=== PATIENT | female | born 1995 | race African-American/Black ===

== ENCOUNTER 2017-09-14 16:38 | Emergency (ER) | payer OTHER ==
[~2017-09-14] VITALS: Ht 162.6 cm; Wt 124.7 kg
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
[2017-09-14 17:35] VITALS: BP 155/92
[2017-09-14] MEDS ORDERED: IBUP-1060 PO (18:13)
[2017-09-14] MEDS ORDERED: CYCL5TAB PO (18:13)
[2017-09-14] MEDS ORDERED: IBUPROFEN 800 MG TABLET. PO ONE ×2 (18:17→18:30)
--- NOTE | 2017-09-15 07:24 | RAD ---
Lumbar spine x-rays Indication: Pain Technique: 3 views of the lumbar spine Comparison: None Findings: 5 lumbar vertebral bodies. No compression deformities. Mild intervertebral disc space narrowing at L5-S1 suggesting mild degenerative disc disease. SI joints within normal limits. Impression: Mild degenerative disc disease at L5-S1.
== END 2017-09-14 18:27 | disposition home or self-care (01) ==
LOC: ER 16:38
DX: S39.012A Strain of muscle, fascia and tendon of lower back, initial encounter (principal); V49.49XA Driver injured in collision with other motor vehicles in traffic accident, initial encounter; Y93.89 Activity, other specified; Y99.8 Other external cause status; Y92.488 Other paved roadways as the place of occurrence of the external cause
CPT/HCPCS: 72100; 81025; 99284

== ENCOUNTER 2017-09-26 15:45 | Emergency (ER) | payer MEDICAID, OTHER ==
[~2017-09-26] VITALS: Ht 162.6 cm; Wt 124.7 kg
[~2017-09-26 15:45] MED LIST: CYCL5TAB PO; IBUP-1060 PO
[2017-09-26] MEDS ORDERED: TOPIRAMATE 25 MG TABLET. PO STA (16:16)
[2017-09-26] MEDS ORDERED: levETIRAcetam 500 MG TABLET PO STA (16:16)
--- NOTE | 2017-09-26 16:26 | PHYS DOC ---
Past Medical History Past Medical History: Seizure, Other Additional Past Medical Histor: BENIGN BRAIN MASS, HYDROCEPHALUS Past Surgical History: Other Additional Past Surgical Histo: CHIARI MALFORMATIVE -2015 Alcohol Use: None Drug Use: None Adult General Chief Complaint Chief Complaint: HEADACHE HPI HPI Patient is a 22 year old female with history of hydrocephalus, Chiari malformation, who presents today complaining of a generalized 8 out of 10 headache with nausea but no vomiting that began 3 days ago. Patient is also complaining of feeling tired. Patient states she recently moved to [place] and has not seen her neurologist for quite some time. She is out of her Keppra and Topamax as well. Patient denies this being the worst headache in her life. She states the headache began gradually. Review of Systems Review of Systems Constitutional: Denies fever or chills [] Eyes: Denies change in visual acuity, redness, or eye pain [] HENT: Denies nasal congestion or sore throat [] Respiratory: Denies cough or shortness of breath [] Cardiovascular: No additional information not addressed in HPI [] GI: Reports nausea. Denies abdominal pain, vomiting, bloody stools or diarrhea [] : Denies dysuria or hematuria [] Musculoskeletal: Denies back pain or joint pain [] Integument: Denies rash or skin lesions [] Neurologic: Reports headache, denies focal weakness or sensory changes [] All other systems were reviewed and found to be within normal limits, except as documented in this note. Current Medications Current Medications Current Medications Medications (Trade) Dose Ordered Sig/Dorian Start Time Stop Time Status Last Admin Dose Admin Levetiracetam (Keppra) 500 mg 1X STAT 09/26/17 16:16 09/26/17 16:20 DC 09/26/17 16:53 500 MG Ondansetron HCl (Zofran) 4 mg 1X ONCE 09/26/17 16:30 09/26/17 16:31 DC 09/26/17 16:45 4 MG Sodium Chloride 1,000 ml @ 1,000 mls/hr 1X ONCE 09/26/17 16:30 09/26/17 17:29 DC 09/26/17 16:44 1,000 MLS/HR Topiramate (Topamax) 25 mg 1X STAT 09/26/17 16:16 09/26/17 16:20 DC 09/26/17 16:53 25 MG Allergies Allergies Allergies Coded Allergies Type Severity Reaction Last Updated Verified No Known Drug Allergies 09/14/17 No Physical Exam Physical Exam Constitutional: Well developed, well nourished, no acute distress, non-toxic appearance. [] HENT: Normocephalic, atraumatic, bilateral external ears normal, oropharynx moist, no oral exudates, nose normal. [] Eyes: PERRLA, EOMI, conjunctiva normal, no discharge. [] Neck: Normal range of motion, no tenderness, supple, no stridor. [] Cardiovascular:Heart rate regular rhythm, no murmur [] Lungs & Thorax: Bilateral breath sounds clear to auscultation [] Abdomen: Bowel sounds normal, soft, no tenderness, no masses, no pulsatile masses. [] Skin: Warm, dry, no erythema, no rash. [] Back: No tenderness, no CVA tenderness. [] Extremities: No tenderness, no cyanosis, no clubbing, ROM intact, no edema. [] Neurologic: Alert and oriented X 3, normal motor function, normal sensory function, no focal deficits noted. Cranial nerves II-XII intact Psychologic: Affect normal, judgement normal, mood normal. [] Current Patient Data Vital Signs Vital Signs Date Time Temp Pulse Resp B/P (MAP) Pulse Ox O2 Delivery O2 Flow Rate FiO2 09/26/17 16:45 81 16 98 09/26/17 15:49 98.2 155/96 (115) Room Air 98.2 Lab Values Laboratory Tests Test 09/26/17 16:23 09/26/17 16:30 POC Urine HCG, Qualitative Hcg negative (Negative) Urine Color Yellow Urine Clarity Clear Urine pH 6.5 Urine Specific [place] >=1.030 Urine Protein Negative mg/dL (NEG-TRACE) Urine Glucose (UA) Negative mg/dL (NEG) Urine Ketones (Stick) Negative mg/dL (NEG) Urine Blood Negative (NEG) Urine Nitrite Negative (NEG) Urine Bilirubin Negative (NEG) Urine Urobilinogen Dipstick 0.2 mg/dL (0.2 mg/dL) Urine Leukocyte Esterase Negative (NEG) Urine RBC 0 /HPF (0-2) Urine WBC Occ /HPF (0-4) Urine Squamous Epithelial Cells Occ /LPF Urine Bacteria Few /HPF (0-FEW) Urine Mucus Mod /LPF Sodium Level 139 mmol/L (136-145) Potassium Level 3.7 mmol/L (3.5-5.1) Chloride Level 103 mmol/L (98-107) Carbon Dioxide Level 25 mmol/L (21-32) Anion Gap 11 (6-14) Blood Urea Nitrogen 14 mg/dL (7-20) Creatinine 0.9 mg/dL (0.6-1.0) Estimated GFR (Cockcroft-Gault) 96.6 BUN/Creatinine Ratio 16 (6-20) Glucose Level 87 mg/dL (70-99) Calcium Level 9.2 mg/dL (8.5-10.1) Total Bilirubin 0.2 mg/dL (0.2-1.0) Aspartate Amino Transferase (AST) 19 U/L (15-37) Alanine Aminotransferase (ALT) 28 U/L (14-59) Alkaline Phosphatase 97 U/L (46-116) Total Protein 8.1 g/dL (6.4-8.2) Albumin 3.6 g/dL (3.4-5.0) Albumin/Globulin Ratio 0.8 (1.0-1.7) L Lipase 116 U/L (73-393) Laboratory Tests 09/26/17 16:30 EKG EKG [] Radiology/Procedures Radiology/Procedures []PROCEDURE: CT HEAD WO CONTRAST CT head without contrast 09/26/2017 Clinical indication: Chronic headache, history of hydrocephalus and Chiari malformation. COMPARISON: None. TECHNIQUE: Multiple CT images of the head were obtained without contrast according to standard protocol. There *One or more of the following individualized dose reduction techniques were utilized for this examination: 1. Automated exposure control. 2. Adjustment of the mA and/or kV according to patient size. 3. Use of iterative reconstruction technique. FINDINGS: There is asymmetry of the lateral ventricles. No acute intracranial hemorrhage or extra-axial fluid collection. No midline shift. The loaiza-white matter interfaces are grossly maintained. The basal cisterns are patent. There is hyperostosis frontalis internus which is a normal variant. Prior midline suboccipital craniectomy. IMPRESSION: 1. No acute intracranial hemorrhage. 2. Prior suboccipital craniectomy. 3. Asymmetry of the lateral ventricles, which can be a normal variant. Comparison with more remote imaging is recommended, if available. Electronically signed by: Luciano Daugherty MD (09/26/2017 5:12 PM) [facility] DICTATED and SIGNED BY: LUCIANO DAUGHERTY MD DATE: 09/26/17 2262 CC: KATHE ROMERO APRN; NO PCP; NON,STAFF ~ Course & Med Decision Making Course & Med Decision Making Pertinent Labs and Imaging studies reviewed. (See chart for details) This is a 24-year-old female patient with a history of Chiari malformation and hydrocephalus presenting to the ED today with a headache and nausea that began 3 days ago. CMP would not acute findings, urine negative for any acute findings. CBC not available. CT of the head was negative for any acute findings. Patient was provided a neurologist. She'll be discharged with a refill for her Topamax and Keppra. Dragon Disclaimer Dragon Disclaimer This electronic medical record was generated, in whole or in part, using a voice recognition dictation system. Departure Departure Impression: Primary Impression: Headache Disposition: 01 HOME, SELF-CARE Condition: STABLE Referrals: NO PCP (PCP) TRAVIS PLATT MD follow up in one week Patient Instructions: General Headache Without Cause Additional Instructions: You were seen for a headache. We did a CT scan of your head which is negative for any acute findings. We provided you an neurologist for follow-up. Call the office tomorrow and set up a follow-up appointment. You were discharged with Keppra and Topamax. Take them as prescribed. Scripts Topiramate (TOPAMAX) 25 Mg Tablet 1 TAB PO BID, #90 TAB 0 Refills Prov: KATHE ROMERO APRN 09/26/17 Levetiracetam (KEPPRA) 500 Mg Tablet 1 TAB PO BID, #90 TAB 0 Refills Prov: KATHE ROMERO APRN 09/26/17 Problem Qualifiers Primary Impression: Headache Headache type: unspecified Headache chronicity pattern: unspecified pattern Intractability: not intractable Qualified Codes: R51 - Headache DARRINJOSE AKATHE APRN Sep 26, 2017 16:26
[2017-09-26] MEDS ORDERED: IV NORMAL SALINE 1000ML BAG 1,000 ML IV ONE (16:30)
[2017-09-26] MEDS ORDERED: ONDANSETRON PF 4 MG/2 ML VIAL. IV ONE (16:30)
[2017-09-26 16:46] LABS: BILIRUBIN,URINE NEGATIVE (NEG); GLUCOSE,URINE NEGATIVE (NEG); NITRITE,URINE NEGATIVE (NEG); PH,URINE 6.5; PROTEIN,URINE NEGATIVE (NEG-TRACE); UROBILINOGEN,URINE 0.2 mg/dL (0.2 mg/dL)
[2017-09-26 16:54] LABS: CALCIUM 9.2 mg/dL (8.5-10.1); CREATININE 0.9 mg/dL (0.6-1.0); GFR 96.6; POTASSIUM 3.7 mmol/L (3.5-5.1)
[2017-09-26 16:57] LABS: BACTERIA,URINE FEW /HPF (0-FEW); RBC,URINE 0 /HPF (0-2); SQUAMOUS EPITHELIAL CELL,UR OCC /LPF; WBC,URINE OCC /HPF (0-4)
[2017-09-26 17:01] LABS: ALBUMIN 3.6 g/dL (3.4-5.0); ALBUMIN/GLOBULIN RATIO 0.8 (1.0-1.7); TOTAL BILIRUBIN 0.2 mg/dL (0.2-1.0); TOTAL PROTEIN 8.1 g/dL (6.4-8.2)
--- NOTE | 2017-09-26 17:15 | RAD ---
CT head without contrast 09/26/2017 Clinical indication: Chronic headache, history of hydrocephalus and Chiari malformation. COMPARISON: None. TECHNIQUE: Multiple CT images of the head were obtained without contrast according to standard protocol. There *One or more of the following individualized dose reduction techniques were utilized for this examination: 1. Automated exposure control. 2. Adjustment of the mA and/or kV according to patient size. 3. Use of iterative reconstruction technique. FINDINGS: There is asymmetry of the lateral ventricles. No acute intracranial hemorrhage or extra-axial fluid collection. No midline shift. The loaiza-white matter interfaces are grossly maintained. The basal cisterns are patent. There is hyperostosis frontalis internus which is a normal variant. Prior midline suboccipital craniectomy. IMPRESSION: 1. No acute intracranial hemorrhage. 2. Prior suboccipital craniectomy. 3. Asymmetry of the lateral ventricles, which can be a normal variant. Comparison with more remote imaging is recommended, if available. Electronically signed by: Hua Daugherty MD (09/26/2017 5:12 PM) [facility]
[2017-09-26 17:40] VITALS: BP 136/65
[2017-09-26] MEDS ORDERED: LEVE500T56 PO (17:55)
[2017-09-26] MEDS ORDERED: TOPI25TA52 PO (17:55)
[2017-09-26 18:04] LABS: BASO % 0 % (0-3); EOS % 0 % (0-3); HEMATOCRIT 35.3 % (36.0-47.0); HEMOGLOBIN 10.9 g/dL (12.0-15.5); LYMPH # 1.9 x10^3/uL (1.0-4.8); LYMPH % 17 % (24-48); MEAN CORPUSCULAR HEMOGLOBIN 25 pg (25-35); MEAN CORPUSCULAR HGB CONC 31 g/dL (31-37); MEAN CORPUSCULAR VOLUME 80 fL (79-100); MONO % 5 % (0-9); NEUT % 78 % (31-73); PLATELET COUNT 284 x10^3/uL (140-400); RED BLOOD COUNT 4.43 x10^6/uL (3.50-5.40); RED CELL DISTRIBUTION WIDTH 15.6 % (11.5-14.5); WHITE BLOOD COUNT 11.2 x10^3/uL (4.0-11.0)
== END 2017-09-26 18:02 | disposition home or self-care (01) ==
LOC: ER 15:45
DX: R51 Headache (principal); R11.0 Nausea
CPT/HCPCS: 36415; 70450; 80053; 81001; 81025; 83690; 85025; 96361; 96374; 99285; J2405; J7030

== ENCOUNTER 2018-04-20 22:41 | Emergency (ER) | payer MEDICAID ==
[2018-04-21] MEDS: ONDANSETRON PF 4 MG/2 ML VIAL. IV (00:20)
[2018-04-21] MEDS: IV NORMAL SALINE 1000ML BAG 1,000 ML IV (00:20)
[2018-04-21] MEDS: TOPIRAMATE 25 MG TABLET. PO (00:20)
[2018-04-21 00:21] LABS: ADD MAN DIFF? NO
[2018-04-21 00:24] LABS: BASO % 0 % (0-3); EOS # 0.1 x10^3/uL (0.0-0.7); EOS % 1 % (0-3); HEMATOCRIT 35.2 % (36.0-47.0); HEMOGLOBIN 11.3 g/dL (12.0-15.5); LYMPH # 2.4 x10^3/uL (1.0-4.8); LYMPH % 19 % (24-48); MEAN CORPUSCULAR HEMOGLOBIN 25 pg (25-35); MEAN CORPUSCULAR HGB CONC 32 g/dL (31-37); MEAN CORPUSCULAR VOLUME 78 fL (79-100); MONO # 0.5 x10^3/uL (0.0-1.1); MONO % 4 % (0-9); NEUT # 9.4 x10^3uL (1.8-7.7); NEUT % 76 % (31-73); PLATELET COUNT 304 x10^3/uL (140-400); RED BLOOD COUNT 4.49 x10^6/uL (3.50-5.40); RED CELL DISTRIBUTION WIDTH 15.9 % (11.5-14.5); WHITE BLOOD COUNT 12.4 x10^3/uL (4.0-11.0)
[2018-04-21 00:31] LABS: ANION GAP 11 (6-14); BLOOD UREA NITROGEN 13 mg/dL (7-20); BUN/CREATININE RATIO 13 (6-20); CALCIUM 8.9 mg/dL (8.5-10.1); CARBON DIOXIDE 23 mmol/L (21-32); CHLORIDE 107 mmol/L (98-107); GFR 84.7; GLUCOSE 85 mg/dL (70-99); POTASSIUM 4.3 mmol/L (3.5-5.1); SODIUM 141 mmol/L (136-145)
[2018-04-21 00:37] LABS: ALBUMIN 3.3 g/dL (3.4-5.0); ALBUMIN/GLOBULIN RATIO 0.8 (1.0-1.7); ALK PHOS 95 U/L (46-116); ALT (SGPT) 24 U/L (14-59); AST (SGOT) 24 U/L (15-37); LIPASE 136 U/L (73-393); TOTAL BILIRUBIN 0.3 mg/dL (0.2-1.0); TOTAL PROTEIN 7.6 g/dL (6.4-8.2)
[2018-04-21 00:47] LABS: URINE HCG POC HCG NEGATIVE (Negative)
[2018-04-21 00:48] LABS: BILIRUBIN,URINE NEGATIVE (NEG); CLARITY,URINE CLOUDY; COLOR,URINE YELLOW; GLUCOSE,URINE NEGATIVE (NEG); NITRITE,URINE NEGATIVE (NEG); PROTEIN,URINE NEGATIVE (NEG-TRACE); UROBILINOGEN,URINE 0.2 mg/dL (0.2 mg/dL)
[2018-04-21 01:02] LABS: BACTERIA,URINE MODERATE /HPF (0-FEW); SQUAMOUS EPITHELIAL CELL,UR FEW /LPF
== END 2018-04-21 01:19 | disposition home or self-care (01) ==
LOC: ER 04-21 01:19
DX: R56.9 Unspecified convulsions (principal); K21.9 Gastro-esophageal reflux disease without esophagitis; F12.10 Cannabis abuse, uncomplicated; Z79.899 Other long term (current) drug therapy
CPT/HCPCS: 36415; 80053; 81001; 81025; 83605; 83690; 85025; 87086; 93005; 96361; 96374; 96375; 99285-25; J2060; J2405; J7030

== ENCOUNTER 2018-10-23 22:32 | Emergency (ER) | payer SELFPAY ==
[~2018-10-23] VITALS: Ht 162.6 cm; Wt 127.0 kg
[~2018-10-23 22:32] MED LIST changes: +LEVE500T56 PO; +ONDA4TAB10 SL; +TOPI25TA52 PO
[2018-10-23 22:34] VITALS: BP 151/78
[2018-10-23] MEDS ORDERED: NAPROXEN 500 MG TABLET PO ONE (23:00)
[2018-10-23] MEDS ORDERED: CYCL10TA2 PO (23:17)
[2018-10-23] MEDS ORDERED: TOPI50TA8 PO (23:17)
[2018-10-23] MEDS ORDERED: DICL50TA4 PO (23:17)
[2018-10-23] MEDS ORDERED: ACET-704 PO (23:17)
--- NOTE | 2018-10-23 23:17 | PHYS DOC ---
Past Medical History Past Medical History: Seizure, Other Additional Past Medical Histor: BENIGN BRAIN MASS, HYDROCEPHALUS Past Surgical History: Other Additional Past Surgical Histo: CHIARI MALFORMATIVE -2015 Alcohol Use: None Drug Use: None Adult General Chief Complaint Chief Complaint: BACK PAIN - NO INJURY HPI HPI Patient is a 23 year old female with history of seizures who presents today complaining of exacerbation of chronic low back pain. Patient denies any known injury. Patient rates the pain as moderate described this as sharp and radiating to the left lower extremity. Patient states the pain has been going on for a couple days. Patient denies any known injury. Patient denies any numbness or tingling to bilateral lower extremities. Denies any loss of bowel bladder function. She is also requesting a refill of Topiramate for her seizures. She states she is in the process of switching her insurance from [place] to [place]. Review of Systems Review of Systems Constitutional: Denies fever or chills [] GI: Denies abdominal pain, nausea, vomiting, bloody stools or diarrhea [] : Denies dysuria or hematuria [] Musculoskeletal: Reports exacerbation of chronic low back pain, denies joint pain [] Integument: Denies rash or skin lesions [] Neurologic: Request for seizure medication refill. Denies headache, focal weakness or sensory changes [] All other systems were reviewed and found to be within normal limits, except as documented in this note. Current Medications Current Medications Current Medications Medications (Trade) Dose Ordered Sig/Dorian Start Time Stop Time Status Last Admin Dose Admin Acetaminophen/ Hydrocodone Bitart (Lortab 5/325) 2 tab 1X ONCE 10/23/18 23:30 10/23/18 23:31 10/23/18 23:04 2 TAB Cyclobenzaprine HCl (Flexeril) 10 mg 1X ONCE 10/23/18 23:30 10/23/18 23:31 10/23/18 23:03 10 MG Naproxen (Naprosyn) 500 mg 1X ONCE 10/23/18 23:00 10/23/18 23:01 DC 10/23/18 23:03 500 MG Allergies Allergies Allergies Coded Allergies Type Severity Reaction Last Updated Verified No Known Drug Allergies 09/14/17 No Physical Exam Physical Exam Constitutional: Well developed, well nourished, no acute distress, non-toxic appearance. [] Abdomen: Bowel sounds normal, soft, no tenderness, no masses, no pulsatile masses. [] Skin: Warm, dry, no erythema, no rash. [] Back: Overweight patient. Diffuse paraspinal muscle tenderness the left lumbar spine worse on the left SI joint, no midline lumbar spine tenderness, no CVA tenderness. [] Extremities: No tenderness, no cyanosis, no clubbing, ROM intact, no edema. [] Neurologic: Alert and oriented X 3, normal motor function, normal sensory function, no focal deficits noted. [] Psychologic: Affect normal, judgement normal, mood normal. [] Current Patient Data Vital Signs Vital Signs Date Time Temp Pulse Resp B/P (MAP) Pulse Ox O2 Delivery O2 Flow Rate FiO2 10/23/18 23:04 18 98 Room Air EKG EKG [] Radiology/Procedures Radiology/Procedures [] Course & Med Decision Making Course & Med Decision Making Pertinent Labs and Imaging studies reviewed. (See chart for details) This is a 23-year-old female patient presenting to the ED today with low back pain, no known injury. History of the same. No cauda equina syndrome symptoms on exam. Patient will be provided pain management for outpatient follow-up. Also requesting refill for her seizure medicine. Prescription for Topiramate given. Provided neurology for follow-up. Dragon Disclaimer Dragon Disclaimer This electronic medical record was generated, in whole or in part, using a voice recognition dictation system. Departure Departure Impression: Primary Impression: Back pain Additional Impression: Medication refill Disposition: HOME, SELF-CARE Condition: STABLE Referrals: NO PCP (PCP) follow up in one week ANTHONY ARCHER MD follow up in one week ELISE GALVEZ MD Patient Instructions: Back Pain, Adult, [id number] Additional Instructions: You were evaluated in the emergency room for low back pain. Please take the prescribed medications as ordered. Follow-up with your own doctor or the provided specialist in one week. Scripts Diclofenac Sodium (DICLOFENAC SODIUM) 50 Mg Tablet. 1 TAB PO BID, #60 TAB 2 Refills Prov: KATHE ROMERO [employer] 10/23/18 Topiramate (TOPIRAMATE) 50 Mg Tablet 1 TAB PO BID, #90 TAB 3 Refills Prov: YOLYAKATHE [employer] 10/23/18 Acetaminophen With Codeine (TYLENOL WITH CODEINE #3 TABLET) 1 Each Tablet 1 TAB PO PRN Q6HRS PRN for PAIN, #30 TAB Prov: KATHE ROMERO [employer] 10/23/18 Cyclobenzaprine Hcl (CYCLOBENZAPRINE HCL) 10 Mg Tablet 1 TAB PO TID, #30 TAB Prov: KATHE ROMERO [employer] 10/23/18 Problem Qualifiers Primary Impression: Back pain Back pain location: low back pain Chronicity: chronic Back pain laterality : left Sciatica presence: with sciatica Sciatica laterality: sciatica of left side Qualified Codes: M54.42 - Lumbago with sciatica, left side; G89.29 - Other chronic pain KATHE ROMERO ADY Oct 23, 2018 23:17
[2018-10-23] MEDS ORDERED: HYDROcodone/APAP 5/325MG 1 TAB TABLET PO ONE (23:30)
[2018-10-23] MEDS ORDERED: CYCLOBENZAPRINE 10 MG TABLET. PO ONE (23:30)
== END 2018-10-23 23:18 | disposition home or self-care (01) ==
LOC: ER 22:32
DX: G89.29 Other chronic pain (principal); M54.42 Lumbago with sciatica, left side; Z76.0 Encounter for issue of repeat prescription; E66.3 Overweight; Z68.42 Body mass index [BMI] 45.0-49.9, adult
CPT/HCPCS: 99284

== ENCOUNTER 2018-11-19 16:25 | Emergency (ER) | payer OTHER ==
[~2018-11-19] VITALS: Ht 162.6 cm; Wt 117.9 kg
[~2018-11-19 16:25] MED LIST changes: +ACET-704 PO; +CYCL10TA2 PO; +DICL50TA4 PO; +TOPI50TA8 PO
[2018-11-19 16:35] VITALS: BP 150/74
[2018-11-19] MEDS ORDERED: BENZ100C PO (16:50)
--- NOTE | 2018-11-19 16:51 | PHYS DOC ---
Past Medical History Past Medical History: Asthma, Seizure, Other Additional Past Medical Histor: BENIGN BRAIN MASS, HYDROCEPHALUS, SCIATICA (EUGENIO DOUGLAS THREAD WINDER) Past Surgical History: Other Additional Past Surgical Histo: CHIARI MALFORMATIVE -2015, "BACK SURGERY" (EUGENIO DOUGLAS THREAD WINDER) Alcohol Use: Occasionally Drug Use: Marijuana (EUGENIO DOUGLAS THREAD WINDER) Adult General Chief Complaint Chief Complaint: COUGH HPI HPI Patient is a 23 year old female who presents with cough times one month. States that whenever she coughs hard or strains the back of her head will hurt and sometimes she will feel like she is weak or may faint. Patient has not fainted. She denies LOC, dizziness, chest pain, shortness of air. Patient states occasionally she was nauseated. (EUGENIO DOUGLAS THREAD WINDER) Review of Systems Review of Systems Constitutional: Denies fever or chills [] Eyes: Denies change in visual acuity, redness, or eye pain [] HENT: Denies nasal congestion or sore throat [] Respiratory: cough or denies shortness of breath [] Cardiovascular: No additional information not addressed in HPI [] GI: Denies abdominal pain, nausea, vomiting, bloody stools or diarrhea [] : Denies dysuria or hematuria [] Musculoskeletal: Denies back pain or joint pain [] Integument: Denies rash or skin lesions [] Neurologic: headache, denies focal weakness or sensory changes [] All other systems were reviewed and found to be within normal limits, except as documented in this note. (EUGENIO DOUGLAS THREAD WINDER) Current Medications Current Medications Current Medications Medications (Trade) Dose Ordered Sig/Dorian Start Time Stop Time Status Last Admin Dose Admin Dexamethasone (Decadron) 8 mg 1X ONCE 11/19/18 17:00 11/19/18 17:01 DC 11/19/18 17:06 8 MG (ROMAINE JANSEN DO) Allergies Allergies Allergies Coded Allergies Type Severity Reaction Last Updated Verified No Known Drug Allergies 09/14/17 No (ROMAINE JANSEN DO) Physical Exam Physical Exam Constitutional: Well developed, well nourished, no acute distress, non-toxic appearance. [] HENT: Normocephalic, atraumatic, bilateral external ears normal, oropharynx moist, no oral exudates, nose normal. [] Eyes: PERRLA, EOMI, conjunctiva normal, no discharge. [] Neck: Normal range of motion, no tenderness, supple, no stridor. [] Cardiovascular:Heart rate regular rhythm, no murmur [] Lungs & Thorax: Bilateral breath sounds clear to auscultation [] Abdomen: Bowel sounds normal, soft, no tenderness, no masses, no pulsatile masses. [] Skin: Warm, dry, no erythema, no rash. [] Back: No tenderness, no CVA tenderness. [] Extremities: No tenderness, no cyanosis, no clubbing, ROM intact, no edema. [] Neurologic: Alert and oriented X 3, normal motor function, normal sensory function, no focal deficits noted. [] Psychologic: Affect normal, judgement normal, mood normal. [] (EUGENIO DOUGLAS APRN) Current Patient Data Vital Signs Vital Signs Date Time Temp Pulse Resp B/P (MAP) Pulse Ox O2 Delivery O2 Flow Rate FiO2 11/19/18 16:35 99.0 96 16 150/74 (99) 100 Room Air 99.0 (ROMAINE JANSEN DO) EKG EKG [] (EUGENIO DOUGLAS APRN) Radiology/Procedures Radiology/Procedures [] (EUGENIO DOUGLAS APRN) Course & Med Decision Making Course & Med Decision Making Patient is a 23 year old female who presents with cough times one month. States that whenever she coughs hard or strains the back of her head will hurt and sometimes she will feel like she is weak or may faint. Patient has not fainted. She denies LOC, numbness or tingling, dizziness, chest pain, shortness of air, abdominal pain, dysuria, body aches. Patient states occasionally she was nauseated. Lungs are clear to auscultation in all lobes. Neurologically intact. Alert and oriented. Walks with steady gait. Bilateral tympanic membranes are boggy in color. Her temp is 99.0. Rest of vital signs are within normal limits. Patient has no focal weaknesses. Patient is getting a dose of dexamethasone in the ED. Given a prescription for Tessalon Perles. Patient also needs resources to establish a primary care provider. Patient to continue taking Tylenol or ibuprofen for any Pain she is having. Patient is stable and in no distress. (EUGENIO DOUGLAS APRN) Dragon Disclaimer Dragon Disclaimer This electronic medical record was generated, in whole or in part, using a voice recognition dictation system. (EUGENIO DOUGLAS APRN) Departure Departure Impression: Primary Impression: Cough Disposition: HOME, SELF-CARE Condition: STABLE Referrals: NO PCP (PCP) Patient Instructions: Cough, Adult Additional Instructions: Follow up with primary care as soon as possible. Take medications as Prescribed. Scripts Benzonatate (TESSALON PERLE) 100 Mg Capsule 1 CAP PO TID for 7 Days, #21 CAP Prov: EUGENIO DOUGLAS APRN 11/19/18 Attending Signature Attending Signature I have reviewed the PA/EVICTION SPECIALIST's note and plan of care. I was available for consultation as needed during the patient's visit in the emergency department. I agree with the clinical impression, plan, and disposition. (ROMAINE JANSEN DO) EUGENIO DOUGLAS APRN Nov 19, 2018 16:51 ROMAINE JANSEN DO Nov 19, 2018 17:51
[2018-11-19] MEDS: DEXAMETHASONE 4 MG TABLET PO ONE (17:06)
== END 2018-11-19 17:05 | disposition home or self-care (01) ==
LOC: ER 16:25
DX: R05 Cough (principal); R51 Headache; J45.909 Unspecified asthma, uncomplicated
CPT/HCPCS: 99283; J8540

== ENCOUNTER 2019-01-16 20:16 | Emergency (ER) | payer OTHER ==
[~2019-01-16] VITALS: Ht 162.6 cm; Wt 124.7 kg
[~2019-01-16 20:16] MED LIST changes: +BENZ100C PO
[2019-01-16 20:36] VITALS: BP 138/91
[2019-01-16] MEDS ORDERED: AMOX500C PO (22:07)
--- NOTE | 2019-01-16 22:08 | PHYS DOC ---
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 Patient denied any fever, no headache, no neck pain. NO ABDOMINAL PAIN, NO SHORTNESS OF AIR, NO CHEST PAIN. Review of Systems Review of Systems Constitutional: Denies fever or chills [] Eyes: Denies change in visual acuity, redness, or eye pain [] HENT: Positive for nasal congestion and sore throat [] Respiratory: Denies cough or shortness of breath [] Cardiovascular: No additional information not addressed in HPI [] GI: Denies abdominal pain, nausea, vomiting, bloody stools or diarrhea [] : Denies dysuria or hematuria [] Musculoskeletal: Denies back pain or joint pain [] Integument: Denies rash or skin lesions [] Neurologic: Denies headache, focal weakness or sensory changes [] Endocrine: Denies polyuria or polydipsia [] All other systems were reviewed and found to be within normal limits, except as documented in this note. Allergies Allergies Allergies Coded Allergies Type Severity Reaction Last Updated Verified No Known Drug Allergies 09/14/17 No Physical Exam Physical Exam Constitutional: Well developed, well nourished, no acute distress, non-toxic appearance. [] HENT: Normocephalic, atraumatic, bilateral external ears normal, oropharynx is erythematous, no oral exudates, nose normal, UVULA IS MIDLINE. Eyes: PERRLA, EOMI, conjunctiva normal, no discharge. [] Neck: Normal range of motion, no tenderness, supple, no stridor. [] Cardiovascular:Heart rate regular rhythm, no murmur [] Lungs & Thorax: Bilateral breath sounds clear to auscultation [] Abdomen: Bowel sounds normal, soft, no tenderness, no masses, no pulsatile masses. [] Skin: Warm, dry, no erythema, no rash. [] Back: No tenderness, no CVA tenderness. [] Extremities: No tenderness, no cyanosis, no clubbing, ROM intact, no edema. [] Neurologic: Alert and oriented X 3, normal motor function, normal sensory function, no focal deficits noted. [] Psychologic: Affect normal, judgement normal, mood normal. [] Current Patient Data Vital Signs Vital Signs Date Time Temp Pulse Resp B/P (MAP) Pulse Ox O2 Delivery O2 Flow Rate FiO2 01/16/19 20:36 97.5 79 16 138/91 (107) 100 Room Air 97.5 EKG EKG [] Radiology/Procedures Radiology/Procedures [] Course & Med Decision Making Course & Med Decision Making Pertinent Labs and Imaging studies reviewed. (See chart for details) [] Dragon Disclaimer Dragon Disclaimer This electronic medical record was generated, in whole or in part, using a voice recognition dictation system. Departure Departure Impression: Primary Impression: Pharyngitis Disposition: 01 HOME, SELF-CARE Condition: STABLE Referrals: NON,STAFF (PCP) follow up with your pcp next week Patient Instructions: Viral and Bacterial Pharyngitis Scripts Amoxicillin (AMOXICILLIN) 500 Mg Capsule 500 MG PO TID for 10 Days, #30 CAP 0 Refills Prov: LOUISE GUIDRY DO 01/16/19 LOUISE GUIDRY DO Jan 16, 2019 22:08
== END 2019-01-16 22:22 | disposition home or self-care (01) ==
LOC: ER 20:16
DX: J02.9 Acute pharyngitis, unspecified (principal); R05 Cough; J45.909 Unspecified asthma, uncomplicated
CPT/HCPCS: 87070; 87880; 99283

== ENCOUNTER 2019-01-23 11:45 | Emergency (ER) | payer OTHER ==
[~2019-01-23] VITALS: Ht 162.6 cm; Wt 122.5 kg
[~2019-01-23 11:45] MED LIST changes: +AMOX500C PO
[2019-01-23 12:28] VITALS: BP 155/78
[2019-01-23] MEDS ORDERED: BENZ100C PO (12:54)
[2019-01-23] MEDS ORDERED: PRED50TA PO (12:54)
[2019-01-23] MEDS ORDERED: AZIT250T PO (12:54)
[2019-01-23] MEDS ORDERED: VENTOLIN HFA18 GM INH (12:54)
--- NOTE | 2019-01-23 12:54 | PHYS DOC ---
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 Patient states she was seen in the ED on my 2018, got diagnosed with pharyngitis and discharged on amoxicillin. She states the amoxicillin made her itch after a couple days of taking it, she states she stopped taking the medication. She would like us to switch her to a different antibiotics. Patient denies any fever. Denies any nasal congestion. She states she still has a cough. (KATHE ROMERO APRN) Review of Systems Review of Systems Constitutional: Denies fever or chills [] Eyes: Denies change in visual acuity, redness, or eye pain [] HENT: Reports sore throat. Denies nasal congestion Respiratory: Reports cough, denies shortness of breath [] Cardiovascular: No additional information not addressed in HPI [] GI: Denies abdominal pain, nausea, vomiting, bloody stools or diarrhea [] : Denies dysuria or hematuria [] Musculoskeletal: Denies back pain or joint pain [] Integument: Denies rash or skin lesions [] Neurologic: Denies headache, focal weakness or sensory changes [] All other systems were reviewed and found to be within normal limits, except as documented in this note. (KATHE ROMERO APRN) Current Medications Current Medications Current Medications Medications (Trade) Dose Ordered Sig/Dorian Start Time Stop Time Status Last Admin Dose Admin Albuterol/ Ipratropium (Duoneb) 3 ml 1X ONCE 01/23/19 13:00 01/23/19 13:00 DC 01/23/19 12:39 3 ML Benzonatate (Tessalon Perle) 100 mg 1X ONCE 01/23/19 13:00 01/23/19 13:00 DC 01/23/19 12:49 100 MG Prednisone (Prednisone) 50 mg 1X ONCE 01/23/19 13:00 01/23/19 13:00 DC 01/23/19 12:50 50 MG (SHARAD SIEGEL MD) Allergies Allergies Allergies Coded Allergies Type Severity Reaction Last Updated Verified No Known Drug Allergies 09/14/17 No (SHARAD SIEGEL MD) Physical Exam Physical Exam Constitutional: Well developed, well nourished, no acute distress, non-toxic appearance. [] HENT: Normocephalic, atraumatic, bilateral external ears normal, oropharynx moist, no oral exudates, nose normal. [] +2 tonsils with trace erythema, no exudate. +2 anterior cervical adenopathy Eyes: PERRLA, EOMI, conjunctiva normal, no discharge. [] Neck: Normal range of motion, no tenderness, supple, no stridor. [] Cardiovascular:Heart rate regular rhythm, no murmur [] Lungs & Thorax: Bilateral breath sounds clear to auscultation [] Abdomen: Bowel sounds normal, soft, no tenderness, no masses, no pulsatile masses. [] Skin: Warm, dry, no erythema, no rash. [] Back: No tenderness, no CVA tenderness. [] Extremities: No tenderness, no cyanosis, no clubbing, ROM intact, no edema. [] Neurologic: Alert and oriented X 3, normal motor function, normal sensory function, no focal deficits noted. [] Psychologic: Affect normal, judgement normal, mood normal. [] (KATHE ROMERO APRN) Current Patient Data Vital Signs Vital Signs Date Time Temp Pulse Resp B/P (MAP) Pulse Ox O2 Delivery O2 Flow Rate FiO2 01/23/19 12:39 98 Room Air 01/23/19 12:28 98.6 85 18 155/78 (103) 98.6 (SHARAD SIEGEL MD) EKG EKG [] (KATHE ROMERO APRN) Radiology/Procedures Radiology/Procedures [] (KATHE ROMERO APRN) Course & Med Decision Making Course & Med Decision Making Pertinent Labs and Imaging studies reviewed. (See chart for details) This is a 23-year-old. Presenting to the ED today with sore throat and a cough that began a week ago, was started on amoxicillin, she states it made her itch. I switched her to azithromycin. She was actively coughing on arrival to the ED. We've given a DuoNeb treatment and prednisone. Her coughing has subsided. She was discharged to home with albuterol inhaler and Tessalon Perles. Given prednisone. Instructed follow up with her own PCP. (KATHE ROMERO APRN) Course & Med Decision Making Staff Physician Addendum: I was working in the ER during the course of this patient's visit. I was available for consultation as needed, but I was not directly involved in the care of this patient. (SHARAD SIEGEL MD) Dragon Disclaimer Dragon Disclaimer This electronic medical record was generated, in whole or in part, using a voice recognition dictation system. (KATHE ROMERO APRN) Departure Departure Impression: Primary Impression: Cough Additional Impression: Acute pharyngitis Disposition: HOME, SELF-CARE Condition: STABLE Referrals: UNKNOWN PCP NAME (PCP) follow up with your doctor in 1 week Patient Instructions: Cough, Adult, Viral and Bacterial Pharyngitis Additional Instructions: You were evaluated in the emergency room for cough and pharyngitis. We put you on medications, take them as prescribed. Follow-up with your doctor in 1-2 weeks. You can also use saltwater gargles for throat pain too Scripts Azithromycin (ZITHROMAX) 250 Mg Tablet 1 PKG PO UD, #1 PKG Prov: KATHE ROMERO APRN 01/23/19 Benzonatate (TESSALON PERLE) 100 Mg Capsule 1 CAP PO TID, #30 CAP Prov: KATHE ROMERO APRN 01/23/19 Albuterol Sulfate (VENTOLIN HFA INHALER) 18 Gm Hfa.aer.ad 2 PUFF INH Q4HRS for FOR ASTHMA, #1 INHALER 0 Refills Prov: KATHE ROMERO APRN 01/23/19 Prednisone (PREDNISONE) 50 Mg Tablet 1 TAB PO DAILY, #5 TAB Prov: KATHE ROMERO APRN 01/23/19 Problem Qualifiers Additional Impression: Acute pharyngitis Pharyngitis/tonsillitis etiology: unspecified etiology Qualified Codes: J02.9 - Acute pharyngitis, unspecified KATHE ROMERO APRN Jan 23, 2019 12:54 SHARAD SIEGEL MD Jan 30, 2019 20:15
[2019-01-23] MEDS ORDERED: predniSONE 10 MG TABLET PO ONE (13:00)
[2019-01-23] MEDS ORDERED: IPRATRPIUM/ALBUTEROL 0.5/2.5MG 3 ML NEBU. NEB ONE (13:00)
[2019-01-23] MEDS ORDERED: BENZONATATE 100 MG CAPSULE. PO ONE (13:00)
== END 2019-01-23 12:54 | disposition home or self-care (01) ==
LOC: ER 11:45
DX: J02.9 Acute pharyngitis, unspecified (principal); R05 Cough; J45.909 Unspecified asthma, uncomplicated
CPT/HCPCS: 94640; 99283; J7512; J7620

== ENCOUNTER 2019-01-31 19:22 | Emergency (ER) | payer OTHER ==
[~2019-01-31] VITALS: Ht 162.6 cm; Wt 122.5 kg
[~2019-01-31 19:22] MED LIST changes: +AZIT250T PO; +PRED50TA PO; +VENTOLIN HFA18 GM INH
[2019-01-31 20:22] LABS: BASO % 0 % (0-3); EOS % 0 % (0-3); HEMATOCRIT 36.4 % (36.0-47.0); HEMOGLOBIN 11.5 g/dL (12.0-15.5); LYMPH # 1.5 x10^3/uL (1.0-4.8); LYMPH % 11 % (24-48); MEAN CORPUSCULAR HEMOGLOBIN 25 pg (25-35); MEAN CORPUSCULAR HGB CONC 32 g/dL (31-37); MEAN CORPUSCULAR VOLUME 79 fL (79-100); MONO # 0.4 x10^3/uL (0.0-1.1); MONO % 3 % (0-9); NEUT # 11.6 x10^3uL (1.8-7.7); NEUT % 85 % (31-73); PLATELET COUNT 342 x10^3/uL (140-400); RED BLOOD COUNT 4.58 x10^6/uL (3.50-5.40); RED CELL DISTRIBUTION WIDTH 14.2 % (11.5-14.5); WHITE BLOOD COUNT 13.5 x10^3/uL (4.0-11.0)
[2019-01-31 20:28] LABS: CALCIUM 9.1 mg/dL (8.5-10.1); CREATININE 0.9 mg/dL (0.6-1.0); GFR 95.6; POTASSIUM 3.4 mmol/L (3.5-5.1)
[2019-01-31 20:33] LABS: ALBUMIN 3.6 g/dL (3.4-5.0); ALBUMIN/GLOBULIN RATIO 0.8 (1.0-1.7); TOTAL BILIRUBIN 0.2 mg/dL (0.2-1.0); TOTAL PROTEIN 8.1 g/dL (6.4-8.2)
[2019-01-31 21:15] LABS: % BANDS 9 % (0-9); % LYMPHS 15 % (24-48); % MONOS 5 % (0-10); % SEGS 71 % (35-66); PLT ESTIMATE ADEQUATE (ADEQUATE)
--- NOTE | 2019-01-31 22:15 | PHYS DOC ---
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 Patient reports feeling anxious, tearful. She states she is under increased stress due to her mother facing a lengthy retirement sentence. Patient's mother findings of her retirement sentence tomorrow. Patient reports occasional chest pain, palpitations, shortness of breath. She is compliant with Topamax. Patient is not from the area does not have a local primary care physician. She does take Topamax. Denies history of epilepsy. [] Review of Systems Review of Systems ROS as per HPI All other systems were reviewed and found to be within normal limits, except as documented in this note. Current Medications Current Medications Current Medications Medications (Trade) Dose Ordered Sig/Dorian Start Time Stop Time Status Last Admin Dose Admin Lorazepam (Ativan) 1 mg 1X ONCE 01/31/19 20:45 01/31/19 20:48 DC 01/31/19 21:31 1 MG Allergies Allergies Allergies Coded Allergies Type Severity Reaction Last Updated Verified amoxicillin Allergy Intermediate 01/31/19 Yes Physical Exam Physical Exam Constitutional: Well developed, well nourished, no acute distress, non-toxic appearance. [] HENT: Normocephalic, atraumatic, bilateral external ears normal, oropharynx moist, no oral exudates, nose normal. [] Eyes: PERRLA, EOMI, conjunctiva normal, no discharge. [] Neck: Normal range of motion, no tenderness, supple, no stridor. [] Cardiovascular:Heart rate regular rhythm, no murmur [] Lungs & Thorax: Bilateral breath sounds clear to auscultation [] Abdomen: Bowel sounds normal, soft, no tenderness, no masses, no pulsatile masses. [] Skin: Warm, dry, no erythema, no rash. [] Back: No tenderness, no CVA tenderness. [] Extremities: No tenderness, no cyanosis, no clubbing, ROM intact, no edema. [] Neurologic: Alert and oriented X 3, normal motor function, normal sensory function, no focal deficits noted. [] Psychologic: Affect anxious, tearful. [] Current Patient Data Vital Signs Vital Signs Date Time Temp Pulse Resp B/P (MAP) Pulse Ox O2 Delivery O2 Flow Rate FiO2 01/31/19 19:37 98.0 85 16 139/79 (99) Room Air 98.0 Lab Values Laboratory Tests Test 01/31/19 19:50 White Blood Count 13.5 x10^3/uL (4.0-11.0) H Red Blood Count 4.58 x10^6/uL (3.50-5.40) Hemoglobin 11.5 g/dL (12.0-15.5) L Hematocrit 36.4 % (36.0-47.0) Mean Corpuscular Volume 79 fL (79-100) Mean Corpuscular Hemoglobin 25 pg (25-35) Mean Corpuscular Hemoglobin Concent 32 g/dL (31-37) Red Cell Distribution Width 14.2 % (11.5-14.5) Platelet Count 342 x10^3/uL (140-400) Neutrophils (%) (Auto) 85 % (31-73) H Lymphocytes (%) (Auto) 11 % (24-48) L Monocytes (%) (Auto) 3 % (0-9) Eosinophils (%) (Auto) 0 % (0-3) Basophils (%) (Auto) 0 % (0-3) Neutrophils # (Auto) 11.6 x10^3uL (1.8-7.7) H Lymphocytes # (Auto) 1.5 x10^3/uL (1.0-4.8) Monocytes # (Auto) 0.4 x10^3/uL (0.0-1.1) Eosinophils # (Auto) 0.0 x10^3/uL (0.0-0.7) Basophils # (Auto) 0.0 x10^3/uL (0.0-0.2) Segmented Neutrophils % 71 % (35-66) H Band Neutrophils % 9 % (0-9) Lymphocytes % 15 % (24-48) L Monocytes % 5 % (0-10) Platelet Estimate Adequate (ADEQUATE) Sodium Level 137 mmol/L (136-145) Potassium Level 3.4 mmol/L (3.5-5.1) L Chloride Level 102 mmol/L (98-107) Carbon Dioxide Level 23 mmol/L (21-32) Anion Gap 12 (6-14) Blood Urea Nitrogen 11 mg/dL (7-20) Creatinine 0.9 mg/dL (0.6-1.0) Estimated GFR (Cockcroft-Gault) 95.6 BUN/Creatinine Ratio 12 (6-20) Glucose Level 100 mg/dL (70-99) H Calcium Level 9.1 mg/dL (8.5-10.1) Total Bilirubin 0.2 mg/dL (0.2-1.0) Aspartate Amino Transferase (AST) 15 U/L (15-37) Alanine Aminotransferase (ALT) 24 U/L (14-59) Alkaline Phosphatase 92 U/L (46-116) Total Protein 8.1 g/dL (6.4-8.2) Albumin 3.6 g/dL (3.4-5.0) Albumin/Globulin Ratio 0.8 (1.0-1.7) L Laboratory Tests 01/31/19 19:50 Laboratory Tests 01/31/19 19:50 EKG EKG [EKG: Sinus rhythm, no acute ST-T wave changes.] Course & Med Decision Making Course & Med Decision Making Pertinent Labs and Imaging studies reviewed. (See chart for details) [Patient under considerable stress likely contributing to anxiety attack, possible pseudoseizure. Ativan given. Workup otherwise unremarkable. Will prescribe Ativan until patient can follow-up or establish with local primary care for] Dragon Disclaimer Dragon Disclaimer This electronic medical record was generated, in whole or in part, using a voice recognition dictation system. Departure Departure Impression: Primary Impression: Pseudoseizure Disposition: 01 HOME, SELF-CARE Condition: IMPROVED Referrals: UNKNOWN PCP NAME (PCP) Patient Instructions: Anxiety and Panic Attacks Additional Instructions: Please take newly prescribed medication as directed and follow-up with primary care physician for further evaluation and management of pseudoseizures. Scripts Lorazepam (ATIVAN) 1 Mg Tablet 1 MG PO BID for 5 Days, #10 TAB Prov: ANÍBAL DOTSON DO 01/31/19 ANÍBAL DOTSON DO Jan 31, 2019 22:15
[2019-01-31] MEDS ORDERED: LORA-434 PO (22:22)
[2019-01-31 22:44] VITALS: BP 154/70
[2019-01-31] MEDS ORDERED: ACETAMINOPHEN 500 MG TABLET PO ONE (23:00)
--- NOTE | 2019-02-01 07:57 | EKG ---
[facility] [address] [place] [address] Test Date: 2019-01-31 Test Time: 21:48:29 Pat Name: DENIZ LEWIS Department: Room: Gender: F Supply Chain Assistant: : 1995 Requested By: ANÍBAL DOTSON Order Number: [id number] Reading MD: Zane Kong Measurements Intervals [place] Rate: 84 P: 28 [place]: 148 QRS: 32 QRSD: 74 T: 38 QT: 338 QTc: 402 Interpretive Statements SINUS RHYTHM NORMAL ECG Electronically Signed On 02-08-2019 12:56:24 CDT by Zane Kong
== END 2019-01-31 23:02 | disposition home or self-care (01) ==
LOC: ER 19:22
DX: R56.9 Unspecified convulsions (principal); R07.89 Other chest pain; R06.02 Shortness of breath; F41.9 Anxiety disorder, unspecified; J45.909 Unspecified asthma, uncomplicated; Z88.1 Allergy status to other antibiotic agents
CPT/HCPCS: 36415; 80053; 84146; 85007; 85025; 93005; 96374; 99285; J2060

== ENCOUNTER 2019-03-02 17:22 | Emergency (ER) | payer OTHER ==
[~2019-03-02] VITALS: Ht 162.6 cm; Wt 117.9 kg
[~2019-03-02 17:22] MED LIST changes: +LORA-434 PO
[2019-03-02 17:25] VITALS: BP 162/79
[2019-03-02] MEDS ORDERED: CYCL10TA2 PO (17:46)
--- NOTE | 2019-03-02 17:47 | PHYS DOC ---
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 States she was at her neurologist on February 25 he manipulated the neck and has been hurting since that time. Has an MRI scheduled on March 12. Denies trauma. Rates her pain 10 out of 10 and sharp. Has been taking ibuprofen 800 and Tylenol at home as needed. (ROMAINE COOMBS APRN) Review of Systems Review of Systems Constitutional: Denies fever or chills [] Eyes: Denies change in visual acuity, redness, or eye pain [] HENT: Denies nasal congestion or sore throat [] Respiratory: Denies cough or shortness of breath [] Cardiovascular: No additional information not addressed in HPI [] GI: Denies abdominal pain, nausea, vomiting, bloody stools or diarrhea [] : Denies dysuria or hematuria [] Musculoskeletal: Denies back pain or joint pain with the exception of neck pain. Integument: Denies rash or skin lesions [] Neurologic: Denies headache, focal weakness or sensory changes [] Endocrine: Denies polyuria or polydipsia [] Complete systems were reviewed and found to be within normal limits, except as documented in this note. (ROMAINE COOMBS APRN) Current Medications Current Medications Current Medications Medications (Trade) Dose Ordered Sig/Dorian Start Time Stop Time Status Last Admin Dose Admin Cyclobenzaprine HCl (Flexeril) 10 mg 1X ONCE 03/02/19 18:15 03/02/19 18:15 DC 03/02/19 18:01 10 MG Ketorolac Tromethamine (Toradol 30mg Vial) 30 mg 1X ONCE 03/02/19 18:15 03/02/19 18:15 DC 03/02/19 18:02 30 MG (VELMA HUDSON MD) Allergies Allergies Allergies Coded Allergies Type Severity Reaction Last Updated Verified amoxicillin Allergy Intermediate 01/31/19 Yes (VELMA HUDSON MD) Physical Exam Physical Exam Constitutional: Well developed, well nourished, no acute distress, non-toxic appearance. [] HENT: Normocephalic, atraumatic, bilateral external ears normal, oropharynx moist, no oral exudates, nose normal. [] Eyes: PERRLA, EOMI, conjunctiva normal, no discharge. [] Neck: Normal range of motion, cervical tenderness, supple, no stridor. [] Cardiovascular:Heart rate regular rhythm, no murmur [] Lungs & Thorax: Bilateral breath sounds clear to auscultation [] Abdomen: Soft, no tenderness, no masses, no pulsatile masses. [] Skin: Warm, dry, no erythema, no rash. [] Back: No tenderness, no CVA tenderness. [] Extremities: No tenderness, no cyanosis, no clubbing, ROM intact, no edema. [] Neurologic: Alert and oriented X 3, normal motor function, normal sensory function, no focal deficits noted. [] Psychologic: Affect normal, judgement normal, mood normal. [] (ROMAINE COOMBS APRN) Current Patient Data Vital Signs Vital Signs Date Time Temp Pulse Resp B/P (MAP) Pulse Ox O2 Delivery O2 Flow Rate FiO2 03/02/19 17:25 99.1 61 16 162/79 (106) 98 Room Air 99.1 (VELMA HUDSON MD) EKG EKG [] (ROMAINE COOMBS APRN) Radiology/Procedures Radiology/Procedures [] (ROMAINE COOMBS APRN) Course & Med Decision Making Course & Med Decision Making Pertinent Labs and Imaging studies reviewed. (See chart for details) Will give Toradol and Flexeril to help with pain and discharge home. (ROMAINE COOMBS APRN) Course & Med Decision Making Patient was seen by STACEY, I did not evaluate the patient unless otherwise specified in the chart. (VELMA HUDSON MD) Dragon Disclaimer Dragon Disclaimer This electronic medical record was generated, in whole or in part, using a voice recognition dictation system. (ROMAINE COOMBS APRN) Departure Departure Impression: Primary Impression: Neck pain Disposition: HOME, SELF-CARE Condition: STABLE Referrals: UNKNOWN PCP NAME (PCP) Additional Instructions: Please follow up with your neurologist and get the MRI on the . Can take Flexeril as directed to help with pain if it helps. Scripts Cyclobenzaprine Hcl (CYCLOBENZAPRINE HCL) 10 Mg Tablet 10 MG PO TID PRN for MUSCLE SPASMS for 7 Days, #21 TAB Prov: ROMAINE COOMBS APRN 03/02/19 ROMAINE COOMBS APRN March 02, 2019 17:47 VELMA HUDSON MD March 02, 2019 18:10
[2019-03-02] MEDS ORDERED: CYCLOBENZAPRINE 10 MG TABLET. PO ONE (18:15)
[2019-03-02] MEDS ORDERED: KETOROLAC 30 MG/ML VIAL. IM ONE (18:15)
== END 2019-03-02 18:06 | disposition home or self-care (01) ==
LOC: ER 17:22
DX: M54.2 Cervicalgia (principal); J45.909 Unspecified asthma, uncomplicated; Z88.1 Allergy status to other antibiotic agents
CPT/HCPCS: 96372; 99283; J1885

== ENCOUNTER 2019-09-14 16:22 | Emergency (ER) | payer MEDICAID, OTHER ==
[~2019-09-14] VITALS: Ht 162.6 cm; Wt 124.7 kg
--- NOTE | 2019-09-14 17:51 | RAD ---
EXAM: Head CT without contrast. HISTORY: Blurred vision. TECHNIQUE: Computed tomographic images of the head were obtained without contrast. *One or more of the following individualized dose reduction techniques were utilized for this examination: 1. Automated exposure control. 2. Adjustment of the mA and/or kV according to patient size. 3. Use of iterative reconstruction technique. COMPARISON: 09/26/2017. FINDINGS: There is no acute or subacute extra-axial or intraparenchymal hemorrhage. There is no mass effect or midline shift. There is no hydrocephalus. The loaiza-white matter differentiation pattern is intact. 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 The visualized portions of the orbits, paranasal sinuses and mastoid air cells are unremarkable. No suspicious calvarial lesion is seen. IMPRESSION: 1. No acute intracranial finding. 2. Findings consistent with a Chiari malformation and suboccipital decompression surgery. Electronically signed by: Fern Carmichael MD (09/14/2019 5:48 PM) [facility]
[2019-09-14] MEDS ORDERED: MORPHINE SULFATE 10 MG/ML VIAL. IV STA (18:01)
[2019-09-14] MEDS ORDERED: ONDANSETRON PF 4 MG/2 ML VIAL. IV STA (18:01)
--- NOTE | 2019-09-14 18:16 | PHYS DOC ---
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 The area was prepped and draped in the usual sterile fashion. Anesthesia was obtained using 10ml lidocaine without epi. A spinal needle was inserted at the [L3/L4 level. Opening pressure was 30. The stylet was then replaced and the needle was withdrawn. A sterile dressing was placed over the site and the patient was placed in the supine position. The patient tolerated the procedure well. Complications: none. (SHIVA ALVAREZ MD) Attending Signature I have participated in the care of this patient and I have reviewed and agree with all pertinent clinical information above including history, exam, and recommendations. (SHIVA ALVAREZ MD) Adult General Chief Complaint Chief Complaint: EYE PROBLEMS HPI HPI Patient is a 24 year old female who presents with bilateral eye pain and blurred vision has been ongoing for month and a half. The patient has been seen at by 2 different neurologist. The patient states that her vision has been progressively getting worse. She states she had a lumbar puncture month ago and was told her opening pressure was high. She was is to be seen by eye doctor but never was. She states she has a history of ear pain for intracranial hypertension. She rates her pain as 10 in severity and sharp. She states in 2015 she had a cerebellar decompression of her brain keep fluids off. This was in [place], [place]. States she was supposed to get a shunt but never received one. (ROMAINE COOMBS APRN) Review of Systems Review of Systems Constitutional: Denies fever or chills [] Eyes: Denies change in visual acuity, redness, or eye pain [] HENT: Reports eye pain and blurry vision bilaterally. Respiratory: Denies cough or shortness of breath [] Cardiovascular: No additional information not addressed in HPI [] GI: Denies abdominal pain, nausea, vomiting, bloody stools or diarrhea [] : Denies dysuria or hematuria [] Musculoskeletal: Denies back pain or joint pain [] Integument: Denies rash or skin lesions [] Neurologic: Reports headache, denies focal weakness or sensory changes [] Endocrine: Denies polyuria or polydipsia [] Complete systems were reviewed and found to be within normal limits, except as documented in this note. (ROMAINE COOMBS APRN) Current Medications Current Medications Current Medications Medications (Trade) Dose Ordered Sig/Dorian Start Time Stop Time Status Last Admin Dose Admin Morphine Sulfate (Morphine Sulfate) 5 mg 1X STAT 09/14/19 18:01 09/14/19 18:03 DC 09/14/19 18:28 5 MG Ondansetron HCl (Zofran) 4 mg 1X STAT 09/14/19 18:01 09/14/19 18:03 DC 09/14/19 18:29 4 MG (SHIVA ALVAREZ MD) Allergies Allergies Allergies Coded Allergies Type Severity Reaction Last Updated Verified amoxicillin Allergy Intermediate 01/31/19 Yes (SHIVA ALVAREZ MD) Physical Exam Physical Exam Constitutional: Well developed, well nourished, no acute distress, non-toxic appearance. [] HENT: Normocephalic, atraumatic, bilateral external ears normal, oropharynx moist, no oral exudates, nose normal. [] Eyes: PERRLA, EOMI, conjunctiva normal, no discharge. Unable to visualize fundus in funduscopic exam. Neck: Normal range of motion, no tenderness, supple, no stridor. [] Cardiovascular:Heart rate regular rhythm, no murmur [] Lungs & Thorax: Bilateral breath sounds clear to auscultation [] Abdomen: Bowel sounds normal, soft, no tenderness, no masses, no pulsatile masses. [] Skin: Warm, dry, no erythema, no rash. [] Back: No tenderness, no CVA tenderness. [] Extremities: No tenderness, no cyanosis, no clubbing, ROM intact, no edema. [] Neurologic: Alert and oriented X 3, normal motor function, normal sensory function, no focal deficits noted. [] Psychologic: Affect normal, judgement normal, mood normal. [] (ROMAINE COOMBS APRN) Current Patient Data Vital Signs Vital Signs Date Time Temp Pulse Resp B/P (MAP) Pulse Ox O2 Delivery O2 Flow Rate FiO2 11/26/19 20:20 74 137/80 (99) 97 Room Air 09/14/19 17:00 99.0 19 99.0 (SHIVA ALVAREZ MD) Lab Values Laboratory Tests Test 09/14/19 17:23 09/14/19 18:30 09/14/19 19:15 POC Urine HCG, Qualitative Hcg negative (Negative) White Blood Count 10.3 x10^3/uL (4.0-11.0) Red Blood Count 4.48 x10^6/uL (3.50-5.40) Hemoglobin 11.3 g/dL (12.0-15.5) L Hematocrit 34.9 % (36.0-47.0) L Mean Corpuscular Volume 78 fL (79-100) L Mean Corpuscular Hemoglobin 25 pg (25-35) Mean Corpuscular Hemoglobin Concent 33 g/dL (31-37) Red Cell Distribution Width 15.7 % (11.5-14.5) H Platelet Count 320 x10^3/uL (140-400) Neutrophils (%) (Auto) 76 % (31-73) H Lymphocytes (%) (Auto) 19 % (24-48) L Monocytes (%) (Auto) 5 % (0-9) Eosinophils (%) (Auto) 0 % (0-3) Basophils (%) (Auto) 0 % (0-3) Neutrophils # (Auto) 7.8 x10^3/uL (1.8-7.7) H Lymphocytes # (Auto) 1.9 x10^3/uL (1.0-4.8) Monocytes # (Auto) 0.6 x10^3/uL (0.0-1.1) Eosinophils # (Auto) 0.0 x10^3/uL (0.0-0.7) Basophils # (Auto) 0.0 x10^3/uL (0.0-0.2) Sodium Level 141 mmol/L (136-145) Potassium Level 3.4 mmol/L (3.5-5.1) L Chloride Level 107 mmol/L (98-107) Carbon Dioxide Level 24 mmol/L (21-32) Anion Gap 10 (6-14) Blood Urea Nitrogen 11 mg/dL (7-20) Creatinine 0.8 mg/dL (0.6-1.0) Estimated GFR (Cockcroft-Gault) 108.5 BUN/Creatinine Ratio 14 (6-20) Glucose Level 93 mg/dL (70-99) Calcium Level 8.5 mg/dL (8.5-10.1) Total Bilirubin 0.2 mg/dL (0.2-1.0) Aspartate Amino Transferase (AST) 15 U/L (15-37) Alanine Aminotransferase (ALT) 26 U/L (14-59) Alkaline Phosphatase 98 U/L (46-116) Total Protein 7.5 g/dL (6.4-8.2) Albumin 3.2 g/dL (3.4-5.0) L Albumin/Globulin Ratio 0.7 (1.0-1.7) L CSF Tube Number 1 CSF Color Colorless CSF Clarity Clear CSF WBC 3 /cmm (Not Established) CSF RBC 351 /cmm (Not Established) CSF Glucose 67 mg/dL (37-70) CSF Total Protein 32.9 mg/dL (15.0-45.0) Laboratory Tests 09/14/19 18:30 Laboratory Tests 09/14/19 18:30 (SHIVA ALVAREZ MD) EKG EKG [] (ROMAINE COOMBS APRN) Radiology/Procedures Radiology/Procedures [] PATIENT: DENIZ LEWIS ACCOUNT: [id number] : 1995 LOCATION: ER AGE: 24 SEX: F EXAM STATUS: REG ER ORD. PHYSICIAN: ROMAINE COOMBS APRN REASON: blurry vision PROCEDURE: CT HEAD WO CONTRAST EXAM: Head CT without contrast. HISTORY: Blurred vision. TECHNIQUE: Computed tomographic images of the head were obtained without contrast. *One or more of the following individualized dose reduction techniques were utilized for this examination: 1. Automated exposure control. 2. Adjustment of the mA and/or kV according to patient size. 3. Use of iterative reconstruction technique. COMPARISON: 09/26/2017. FINDINGS: There is no acute or subacute extra-axial or intraparenchymal hemorrhage. There is no mass effect or midline shift. There is no hydrocephalus. The loaiza-white matter differentiation pattern is intact. 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 The visualized portions of the orbits, paranasal sinuses and mastoid air cells are unremarkable. No suspicious calvarial lesion is seen. IMPRESSION: 1. No acute intracranial finding. 2. Findings consistent with a Chiari malformation and suboccipital decompression surgery. Electronically signed by: Fern Bryant MD (09/14/2019 5:48 PM) [facility] DICTATED and SIGNED BY: FERN BRYANT MD DATE: 09/14/191747 (ROMAINE COOMBS APRN) Course & Med Decision Making Course & Med Decision Making Pertinent Labs and Imaging studies reviewed. (See chart for details) Will get CT of head, and labs. Will also give supportive care. Head CT is unremarkable. Labs are unremarkable. I am concerned that she has high pressures in her brain. Discussed with Dr. Alvarez who will perform a lumbar puncture. Dr. Alvarez performed lumbar puncture and opening pressure was 30. Discussed with Dr. Evans who recommends Acetazolamide 500 mg BID and to follow up with neurology at . Visual acuities were 20/30 bilaterally, 20/30 R, 20/40 (L). (ROMAINE COOMBS APRN) Dragon Disclaimer Dragon Disclaimer This electronic medical record was generated, in whole or in part, using a voice recognition dictation system. (ROMAINE COOMBS APRN) Departure Departure Impression: Primary Impression: Idiopathic intracranial hypertension Disposition: 01 HOME, SELF-CARE Condition: STABLE Referrals: ARTURO DASH (PCP) Patient Instructions: Idiopathic Intracranial Hypertension Additional Instructions: Thank you for visiting [facility]. We appreciate you trusting us with your care. If any additional problems come up don't hesitate to return to visit us. Please follow up with your primary care provider so they can plan additional care if needed and know about the problem that you had. If symptoms worsen come back to the Emergency Department. Any concerning symptoms that start such as chest pain, shortness of air, weakness or numbness on one side of the body, running high fevers or any other concerning symptoms return to the ER. Please make an appointment as soon as possible with your neurologist at . Please get this taken care of so you do not lose your eye sight. Scripts Acetazolamide (ACETAZOLAMIDE) 500 Mg Capsule.er 500 MG PO BID for 14 Days, #28 CAP.SR Prov: ROMAINE COOMBS APRN 09/14/19 ROMAINE COOMBS APRN Sep 14, 2019 18:16 SHIVA ALVAREZ MD Sep 15, 2019 02:14
[2019-09-14 18:52] LABS: BASO % 0 % (0-3); EOS % 0 % (0-3); HEMATOCRIT 34.9 % (36.0-47.0); HEMOGLOBIN 11.3 g/dL (12.0-15.5); LYMPH # 1.9 x10^3/uL (1.0-4.8); LYMPH % 19 % (24-48); MEAN CORPUSCULAR HEMOGLOBIN 25 pg (25-35); MEAN CORPUSCULAR HGB CONC 33 g/dL (31-37); MEAN CORPUSCULAR VOLUME 78 fL (79-100); MONO # 0.6 x10^3/uL (0.0-1.1); MONO % 5 % (0-9); NEUT # 7.8 x10^3/uL (1.8-7.7); NEUT % 76 % (31-73); PLATELET COUNT 320 x10^3/uL (140-400); RED BLOOD COUNT 4.48 x10^6/uL (3.50-5.40); RED CELL DISTRIBUTION WIDTH 15.7 % (11.5-14.5); WHITE BLOOD COUNT 10.3 x10^3/uL (4.0-11.0)
[2019-09-14 18:54] LABS: CALCIUM 8.5 mg/dL (8.5-10.1); CREATININE 0.8 mg/dL (0.6-1.0); GFR 108.5; POTASSIUM 3.4 mmol/L (3.5-5.1)
[2019-09-14 19:00] LABS: ALBUMIN 3.2 g/dL (3.4-5.0); ALBUMIN/GLOBULIN RATIO 0.7 (1.0-1.7); TOTAL BILIRUBIN 0.2 mg/dL (0.2-1.0); TOTAL PROTEIN 7.5 g/dL (6.4-8.2)
[2019-09-14 19:47] LABS: CSF PROTEIN 32.9 mg/dL (15.0-45.0)
[2019-09-14 20:10] LABS: CSF CLARITY CLEAR; CSF COLOR COLORLESS
[2019-09-14 20:11] LABS: CSF RBC COUNT 351 /cmm (Not Established); CSF WBC COUNT 3 /cmm (Not Established)
[2019-09-14] MEDS ORDERED: ACET500C5 PO (20:15)
[2019-09-14 20:20] VITALS: BP 137/80
== END 2019-09-14 20:20 | disposition home or self-care (01) ==
LOC: ER 16:22
DX: G93.2 Benign intracranial hypertension (principal); R51 Headache; J45.909 Unspecified asthma, uncomplicated; Z88.1 Allergy status to other antibiotic agents
CPT/HCPCS: 36415; 62270; 70450; 80053; 81025; 82945; 84157; 85025; 87071; 87075; 89051; 96374; 96375; 99285; J2270; J2405

== ENCOUNTER 2019-10-05 21:06 | Inpatient (IN) | payer MEDICAID ==
[~2019-10-05] VITALS: Ht 162.6 cm; Wt 135.6 kg
[~2019-10-05 21:06] MED LIST changes: +ACET500C5 PO
[2019-10-05 21:36] LABS: BASO % 0 % (0-3); EOS % 1 % (0-3); HEMATOCRIT 36.7 % (36.0-47.0); HEMOGLOBIN 11.6 g/dL (12.0-15.5); LYMPH % 20 % (24-48); MEAN CORPUSCULAR HEMOGLOBIN 25 pg (25-35); MEAN CORPUSCULAR HGB CONC 32 g/dL (31-37); MEAN CORPUSCULAR VOLUME 78 fL (79-100); MONO # 0.5 x10^3/uL (0.0-1.1); MONO % 5 % (0-9); NEUT # 7.5 x10^3/uL (1.8-7.7); NEUT % 75 % (31-73); PLATELET COUNT 349 x10^3/uL (140-400); RED BLOOD COUNT 4.73 x10^6/uL (3.50-5.40); RED CELL DISTRIBUTION WIDTH 14.9 % (11.5-14.5)
--- NOTE | 2019-10-05 21:41 | PHYS DOC ---
Past Medical History Past Medical History: Asthma, Seizure, Other Additional Past Medical Histor: BENIGN BRAIN MASS,HYDROCEPHALUS,SCIATICA,PSEUDO TUMOR Past Surgical History: Other Additional Past Surgical Histo: CHIARI MALFORMATIVE -2015, "BACK SURGERY",BRAIN X3 Alcohol Use: None Drug Use: Marijuana Adult General Chief Complaint Chief Complaint: SEIZURE HPI HPI Patient is a 24-year-old female who presents after reportedly having seizure episode at home. Family reports seizure lasted approximately 7-8 minutes and was reportedly tonic-clonic. Patient does have history of seizures in the past and she has a history of Chiari malformation as well as pseudotumor cerebri. Patient complains of severe headache that she rates at a 10 out of 10. She does report some nausea but is had no vomiting. She denies any fever.[] Review of Systems Review of Systems Constitutional: Denies fever or chills [] Eyes: Complains of blurred vision[] Respiratory: Denies cough or shortness of breath [] Cardiovascular: No additional information not addressed in HPI [] GI: Denies abdominal pain, vomiting or diarrhea [] Integument: Denies rash or skin lesions [] Neurologic: Complains of headache and seizure[] All other systems were reviewed and found to be within normal limits, except as documented in this note. Current Medications Current Medications Current Medications Medications (Trade) Dose Ordered Sig/[facility] Start Time Stop Time Status Last Admin Dose Admin Fentanyl Citrate (Fentanyl 2ml Vial) 50 mcg 1X ONCE 10/05/19 21:45 10/05/19 21:46 DC 10/05/19 21:40 50 MCG Ondansetron HCl (Zofran) 4 mg 1X ONCE 10/05/19 21:45 10/05/19 21:46 DC 10/05/19 21:39 4 MG Allergies Allergies Allergies Coded Allergies Type Severity Reaction Last Updated Verified amoxicillin Allergy Intermediate 01/31/19 Yes Physical Exam Physical Exam Constitutional: Well developed, well nourished in moderate distress, non-toxic appearance. [] HENT: Normocephalic, atraumatic, bilateral external ears normal, oropharynx moist, no oral exudates, nose normal. [] Eyes: PERRLA, EOMI, conjunctiva normal, no discharge. [] Neck: Normal range of motion, no tenderness, supple. [] Cardiovascular: Regular rate and rhythm[] Lungs & Thorax: Bilateral breath sounds clear to auscultation [] Abdomen: Bowel sounds normal, soft, no tenderness. [] Skin: Warm, dry, no erythema, no rash. [] Extremities: No tenderness, no cyanosis, no clubbing, ROM intact. [] Neurologic: Alert and oriented X 3, no focal deficits noted. [] Current Patient Data Vital Signs Vital Signs Date Time Temp Pulse Resp B/P (MAP) Pulse Ox O2 Delivery O2 Flow Rate FiO2 10/05/19 21:40 18 99 10/05/19 21:22 98.2 95 146/76 (99) Room Air 98.2 Lab Values Laboratory Tests Test 10/05/19 21:10 10/05/19 22:00 White Blood Count 10.0 x10^3/uL (4.0-11.0) Red Blood Count 4.73 x10^6/uL (3.50-5.40) Hemoglobin 11.6 g/dL (12.0-15.5) L Hematocrit 36.7 % (36.0-47.0) Mean Corpuscular Volume 78 fL (79-100) L Mean Corpuscular Hemoglobin 25 pg (25-35) Mean Corpuscular Hemoglobin Concent 32 g/dL (31-37) Red Cell Distribution Width 14.9 % (11.5-14.5) H Platelet Count 349 x10^3/uL (140-400) Neutrophils (%) (Auto) 75 % (31-73) H Lymphocytes (%) (Auto) 20 % (24-48) L Monocytes (%) (Auto) 5 % (0-9) Eosinophils (%) (Auto) 1 % (0-3) Basophils (%) (Auto) 0 % (0-3) Neutrophils # (Auto) 7.5 x10^3/uL (1.8-7.7) Lymphocytes # (Auto) 2.0 x10^3/uL (1.0-4.8) Monocytes # (Auto) 0.5 x10^3/uL (0.0-1.1) Eosinophils # (Auto) 0.0 x10^3/uL (0.0-0.7) Basophils # (Auto) 0.0 x10^3/uL (0.0-0.2) Sodium Level 140 mmol/L (136-145) Potassium Level 3.7 mmol/L (3.5-5.1) Chloride Level 104 mmol/L (98-107) Carbon Dioxide Level 25 mmol/L (21-32) Anion Gap 11 (6-14) Blood Urea Nitrogen 11 mg/dL (7-20) Creatinine 0.8 mg/dL (0.6-1.0) Estimated GFR (Cockcroft-Gault) 108.5 BUN/Creatinine Ratio 14 (6-20) Glucose Level 101 mg/dL (70-99) H Lactic Acid Level 1.8 mmol/L (0.4-2.0) Calcium Level 8.7 mg/dL (8.5-10.1) Total Bilirubin 0.1 mg/dL (0.2-1.0) L Aspartate Amino Transferase (AST) 23 U/L (15-37) Alanine Aminotransferase (ALT) 37 U/L (14-59) Alkaline Phosphatase 110 U/L (46-116) Total Protein 8.1 g/dL (6.4-8.2) Albumin 3.4 g/dL (3.4-5.0) Albumin/Globulin Ratio 0.7 (1.0-1.7) L Urine Collection Type Unknown Urine Color Yellow Urine Clarity Clear Urine pH 6.0 Urine Specific [place] 1.025 Urine Protein Negative mg/dL (NEG-TRACE) Urine Glucose (UA) Negative mg/dL (NEG) Urine Ketones (Stick) Negative mg/dL (NEG) Urine Blood Negative (NEG) Urine Nitrite Negative (NEG) Urine Bilirubin Negative (NEG) Urine Urobilinogen Dipstick 0.2 mg/dL (0.2 mg/dL) Urine Leukocyte Esterase Negative (NEG) Urine RBC 0 /HPF (0-2) Urine WBC Occ /HPF (0-4) Urine Squamous Epithelial Cells Few /LPF Urine Bacteria 0 /HPF (0-FEW) Urine Mucus Mod /LPF Urine Opiates Screen Neg (NEG) Urine Methadone Screen Neg (NEG) Urine Barbiturates Neg (NEG) Urine Phencyclidine Screen Neg (NEG) Urine Amphetamine/Methamphetamine Neg (NEG) Urine Benzodiazepines Screen Neg (NEG) Urine Cocaine Screen Neg (NEG) Urine Cannabinoids Screen Pos (NEG) Urine Ethyl Alcohol Neg (NEG) Laboratory Tests 10/05/19 21:10 Laboratory Tests 10/05/19 21:10 EKG EKG [] Radiology/Procedures Radiology/Procedures [] Course & Med Decision Making Course & Med Decision Making Pertinent Labs and Imaging studies reviewed. (See chart for details) [] Dragon Disclaimer Dragon Disclaimer This electronic medical record was generated, in whole or in part, using a voice recognition dictation system. Departure Departure Impression: Primary Impression: Seizure Additional Impression: Pseudotumor cerebri Disposition: ADMITTED INPATIENT Admitting Physician: YARY (Dr. Antonio) Condition: IMPROVED Referrals: ARTURO DASH (PCP) Problem Qualifiers ELAN NICHOLAS Jr. DO Oct 05, 2019 21:41
[2019-10-05 21:45] LABS: CALCIUM 8.7 mg/dL (8.5-10.1); CREATININE 0.8 mg/dL (0.6-1.0); GFR 108.5; POTASSIUM 3.7 mmol/L (3.5-5.1)
[2019-10-05] MEDS ORDERED: ONDANSETRON PF 4 MG/2 ML VIAL. IV ONE (21:45)
[2019-10-05] MEDS ORDERED: fentaNYL PF VIAL 100 MCG/2 ML VIAL IVP ONE (21:45)
[2019-10-05 21:51] LABS: ALBUMIN 3.4 g/dL (3.4-5.0); ALBUMIN/GLOBULIN RATIO 0.7 (1.0-1.7); TOTAL BILIRUBIN 0.1 mg/dL (0.2-1.0); TOTAL PROTEIN 8.1 g/dL (6.4-8.2)
[2019-10-05 22:09] LABS: BILIRUBIN,URINE NEGATIVE (NEG); CLARITY,URINE CLEAR; COLOR,URINE YELLOW; NITRITE,URINE NEGATIVE (NEG); PROTEIN,URINE NEGATIVE (NEG-TRACE); UROBILINOGEN,URINE 0.2 mg/dL (0.2 mg/dL)
[2019-10-05 22:16] LABS: BARBITURATES NEG (NEG); BENZODIAZEPINES NEG (NEG); CANNABINOIDS POS (NEG); COCAINE NEG (NEG); METHADONE NEG (NEG); OPIATES NEG (NEG); PHENCYCLIDINE NEG (NEG)
[2019-10-05 22:17] LABS: AMPHETAMINE/METHAMPHETAMINE NEG (NEG); BACTERIA,URINE 0 /HPF (0-FEW); RBC,URINE 0 /HPF (0-2); SQUAMOUS EPITHELIAL CELL,UR FEW /LPF; WBC,URINE OCC /HPF (0-4)
[2019-10-05] MEDS ORDERED: ONDANSETRON PF 4 MG/2 ML VIAL. IV PRN (23:15)
[2019-10-06] MEDS: MORPHINE SULFATE 4 MG/ML VIAL. IV PRN ×2 (00:11→04:19)
--- NOTE | 2019-10-06 01:50 | NUR ---
The patient, DENIZ LEWIS, 24 y/o, F admitted by LINDA TRAN MD, was given written information regarding hospital policies, unit procedures and contact persons. patient transferred to the floor via ED bed assisted by ED staff member. Valuables were checked and noted. family present at bedside. patient denies any needs at this time, patient was given ice water upon admission. This RN will continue to monitor this patient at this time.
[2019-10-06 02:01] VITALS: BP 125/65
[2019-10-06] MEDS ORDERED: SERT100T8 PO (02:13)
[2019-10-06 05:46] LABS: BASO % 0 % (0-3); EOS # 0.1 x10^3/uL (0.0-0.7); EOS % 1 % (0-3); HEMATOCRIT 34.4 % (36.0-47.0); HEMOGLOBIN 11.1 g/dL (12.0-15.5); LYMPH # 2.4 x10^3/uL (1.0-4.8); LYMPH % 27 % (24-48); MEAN CORPUSCULAR HEMOGLOBIN 25 pg (25-35); MEAN CORPUSCULAR HGB CONC 32 g/dL (31-37); MEAN CORPUSCULAR VOLUME 78 fL (79-100); MONO # 0.6 x10^3/uL (0.0-1.1); MONO % 6 % (0-9); NEUT # 6.1 x10^3/uL (1.8-7.7); NEUT % 66 % (31-73); PLATELET COUNT 306 x10^3/uL (140-400); RED BLOOD COUNT 4.41 x10^6/uL (3.50-5.40); RED CELL DISTRIBUTION WIDTH 15.2 % (11.5-14.5); WHITE BLOOD COUNT 9.1 x10^3/uL (4.0-11.0)
[2019-10-06 06:12] LABS: CALCIUM 8.2 mg/dL (8.5-10.1); CREATININE 0.7 mg/dL (0.6-1.0); GFR 126.6; POTASSIUM 3.8 mmol/L (3.5-5.1)
[2019-10-06 07:00] VITALS: BP 135/69
[2019-10-06] MEDS ORDERED: ACETAMINOPHEN/CODEINE 300/30MG TABLET. PO PRN (08:15)
[2019-10-06] MEDS ORDERED: IBUPROFEN 400 MG TABLET. PO PRN (08:15)
[2019-10-06] MEDS ORDERED: ONDANSETRON PF 4 MG/2 ML VIAL. IVP PRN (08:15)
[2019-10-06] MEDS ORDERED: ACETAMINOPHEN 500 MG TABLET PO PRN (08:15)
[2019-10-06] MEDS: ALBUTEROL SULFATE 2.5 MG/3 ML NEBU. NEB SCH ×4 (08:41→19:38)
[2019-10-06] MEDS: BENZONATATE 100 MG CAPSULE. PO SCH ×3 (09:00→20:52)
[2019-10-06] MEDS: SERTRALINE 50 MG TABLET. PO SCH (09:00)
[2019-10-06] MEDS: MORPHINE SULFATE 2 MG/ML VIAL. IV PRN ×2 (10:29→17:28)
--- NOTE | 2019-10-06 10:44 | NUR ---
Patient tookher own med (sertraline and acetazolamide). She was advised that we're going to use the med from the hospital pharmacy while she's inpatient. Patient's home meds sent to pharmacy.
[2019-10-06 11:19] VITALS: BP 116/69
[2019-10-06] MEDS ORDERED: NON FORMULARY ITEM (Albuterol Sulfate (Ventolin Hfa Inhaler) 2 PUFF) INH SCH (12:00)
--- NOTE | 2019-10-06 12:19 | RAD ---
EXAM: Head CT without contrast. HISTORY: Seizure. Fall. TECHNIQUE: Computed tomographic images of the head were obtained without contrast. *One or more of the following individualized dose reduction techniques were utilized for this examination: 1. Automated exposure control. 2. Adjustment of the mA and/or kV according to patient size. 3. Use of iterative reconstruction technique. COMPARISON: 09/14/2019. FINDINGS: There is no acute or subacute extra-axial or intraparenchymal hemorrhage. There is no mass effect or midline shift. There is no hydrocephalus. The loaiza-white matter differentiation pattern is intact. There is development of asymmetry in the size of the left greater than right lateral ventricles. There is a Chiari malformation and evidence of prior suboccipital decompression surgery. The visualized portions of the orbits, paranasal sinuses and mastoid air cells are unremarkable. No suspicious calvarial lesion is seen. IMPRESSION: 1. No acute intracranial finding. 2. Chiari malformation with associated decompression postoperative changes. Electronically signed by: Fern Carmichael MD (10/06/2019 12:16 PM) [place] [id number]
--- NOTE | 2019-10-06 14:33 | PDOC1 ---
History and Physical Date of Admission Date of Admission DATE: 10/06/19 TIME: 14:28 Identification/Chief Complaint Chief Complaint witnesses SZ by friend x 5 mins Source Source: Caregiver, Chart review, Patient History of Present Illness History of Present Illness 24 obese white female, known hx hydrocephalus since a kid, NPH< pseudotumor cerebri? per chart, head sx [facility] past including MIGRATION SPECIALIST shunt etc, comes in bec of witnessed SZ x 5 mins by friend, LAst sz january 2019, gets SZ qyearly,. follows with MARCELA TORO neuro. She tells me 2 meds that she takes that are not AEDs? She says she is off keppra dilantin etc, NO CT head done at ER. LAst CT head 08/2019 craniotomy expected changes. SHe complains of mild headache. I ordered CT head and neuro and ativan prn and sz prec. REg diet ok Past Medical History CENTRAL NERVOUS SYSTEM: Seizure, Other (NPH) Past Surgical History Past Surgical History: Other (MIGRATION SPECIALIST shunt) Family History Family History: No Significant, Family History Unknown Social History Smoke: No ALCOHOL: none Drugs: None Current Problem List Problem List Problems Medical Problems: (1) Pseudotumor cerebri Status: Acute (2) Seizure Status: Acute Current Medications Current Medications Current Medications Fentanyl Citrate (Fentanyl 2ml Vial) 50 mcg 1X ONCE IVP Last administered on 10/05/19at 21:40; Start 10/05/19 at 21:45; Stop 10/05/19 at 21:46; Status DC Ondansetron HCl (Zofran) 4 mg 1X ONCE IV Last administered on 10/05/19at 21:39; Start 10/05/19 at 21:45; Stop 10/05/19 at 21:46; Status DC Ondansetron HCl (Zofran) 4 mg PRN Q8HRS PRN IV NAUSEA/VOMITING; Start 10/05/19 at 23:15; Stop 10/06/19 at 08:46; Status DC Morphine Sulfate (Morphine Sulfate) 4 mg PRN Q2HR PRN IV PAIN Last administered on 10/06/19at 04:19; Start 10/05/19 at 23:15; Stop 10/06/19 at 08:46; Status DC Morphine Sulfate (Morphine Sulfate) 2 mg PRN Q2HR PRN IV MODERATE TO SEVERE PAIN Last administered on 12/18/19at 10:29; Start 10/06/19 at 08:15 Lorazepam (Ativan Inj) 2 mg PRN Q4HRS PRN IVP ANXIETY / AGITATION; Start 10/06/19 at 08:15 Ondansetron HCl (Zofran) 4 mg PRN Q6HRS PRN IVP NAUSEA/VOMITING; Start 10/06/19 at 08:15 Acetaminophen (Tylenol) 500 mg PRN Q6HRS PRN PO MILD PAIN / TEMP; Start 10/06/19 at 08:15 Acetaminophen/ Codeine Phosphate (Tylenol #3) 1 tab PRN Q6HRS PRN PO MODERATE PAIN; Start 10/06/19 at 08:15 Ibuprofen (Motrin) 400 mg PRN Q6HRS PRN PO INFLAMMATION; Start 10/06/19 at 08:15 Acetazolamide (Diamox) 500 mg BID PO ; Start 10/06/19 at 09:00 Benzonatate (Tessalon Perle) 100 mg TID PO ; Start 10/06/19 at 09:00 Non-Formulary Medication (Albuterol Sulfate (Ventolin Hfa Inhaler)) 2 puff Q4HRS INH ; Start 10/06/19 at 12:00; Status UNV Sertraline HCl (Zoloft) 100 mg DAILY PO ; Start 10/06/19 at 09:00 Albuterol Sulfate (Ventolin Neb Soln) 2.5 mg Q4HRS NEB Last administered on 10/06/19at 11:47; Start 10/06/19 at 09:00 Active Scripts Active Acetazolamide 500 Mg Capsule.er 500 Mg PO BID 14 Days Tessalon Perle (Benzonatate) 100 Mg Capsule 1 Cap PO TID Ventolin Hfa Inhaler (Albuterol Sulfate) 18 Gm Hfa.aer.ad 2 Puff INH Q4HRS Reported Sertraline Hcl 100 Mg Tablet 100 Mg PO DAILY Allergies Allergies: Coded Allergies: amoxicillin (Verified Allergy, Intermediate, 01/31/19) ROS Review of System as per hpi, all else neg Physical Exam General: Alert, Oriented X3, Cooperative, No acute distress HEENT: Atraumatic, PERRLA, EOMI Lungs: Clear to auscultation, Normal air movement Heart: S1S2, RRR, no thrills, no rubs Cardiovascular: S1, S2 Breasts: Normal Abdomen: Normal bowel sounds, Soft, No tenderness, No hepatosplenomegaly, No masses Rectal Exam: not examined PELVIC: Nml ext genitalia Extremities: No clubbing, No cyanosis, No edema, Normal pulses, No tenderness/swelling Skin: No rashes, No breakdown, No significant lesion Neuro: Normal gait, Normal speech, Strength at 5/5 X4 ext, Normal tone, Sensation intact, Cranial nerves 3-12 NL, Reflexes 2+ Psych/Mental Status: Mental status NL, Mood NL Vitals Vitals Vital Signs Date Time Temp Pulse Resp B/P (MAP) Pulse Ox O2 Delivery O2 Flow Rate FiO2 10/06/19 11:50 98 Room Air 10/06/19 11:19 98.7 73 18 116/69 (85) 98.7 Labs Labs Laboratory Tests Test 10/05/19 21:10 10/05/19 22:00 10/06/19 04:26 White Blood Count 10.0 x10^3/uL (4.0-11.0) 9.1 x10^3/uL (4.0-11.0) Red Blood Count 4.73 x10^6/uL (3.50-5.40) 4.41 x10^6/uL (3.50-5.40) Hemoglobin 11.6 g/dL (12.0-15.5) 11.1 g/dL (12.0-15.5) Hematocrit 36.7 % (36.0-47.0) 34.4 % (36.0-47.0) Mean Corpuscular Volume 78 fL (79-100) 78 fL (79-100) Mean Corpuscular Hemoglobin 25 pg (25-35) 25 pg (25-35) Mean Corpuscular Hemoglobin Concent 32 g/dL (31-37) 32 g/dL (31-37) Red Cell Distribution Width 14.9 % (11.5-14.5) 15.2 % (11.5-14.5) Platelet Count 349 x10^3/uL (140-400) 306 x10^3/uL (140-400) Neutrophils (%) (Auto) 75 % (31-73) 66 % (31-73) Lymphocytes (%) (Auto) 20 % (24-48) 27 % (24-48) Monocytes (%) (Auto) 5 % (0-9) 6 % (0-9) Eosinophils (%) (Auto) 1 % (0-3) 1 % (0-3) Basophils (%) (Auto) 0 % (0-3) 0 % (0-3) Neutrophils # (Auto) 7.5 x10^3/uL (1.8-7.7) 6.1 x10^3/uL (1.8-7.7) Lymphocytes # (Auto) 2.0 x10^3/uL (1.0-4.8) 2.4 x10^3/uL (1.0-4.8) Monocytes # (Auto) 0.5 x10^3/uL (0.0-1.1) 0.6 x10^3/uL (0.0-1.1) Eosinophils # (Auto) 0.0 x10^3/uL (0.0-0.7) 0.1 x10^3/uL (0.0-0.7) Basophils # (Auto) 0.0 x10^3/uL (0.0-0.2) 0.0 x10^3/uL (0.0-0.2) Sodium Level 140 mmol/L (136-145) 141 mmol/L (136-145) Potassium Level 3.7 mmol/L (3.5-5.1) 3.8 mmol/L (3.5-5.1) Chloride Level 104 mmol/L (98-107) 104 mmol/L (98-107) Carbon Dioxide Level 25 mmol/L (21-32) 27 mmol/L (21-32) Anion Gap 11 (6-14) 10 (6-14) Blood Urea Nitrogen 11 mg/dL (7-20) 11 mg/dL (7-20) Creatinine 0.8 mg/dL (0.6-1.0) 0.7 mg/dL (0.6-1.0) Estimated GFR (Cockcroft-Gault) 108.5 126.6 BUN/Creatinine Ratio 14 (6-20) Glucose Level 101 mg/dL (70-99) 90 mg/dL (70-99) Lactic Acid Level 1.8 mmol/L (0.4-2.0) Calcium Level 8.7 mg/dL (8.5-10.1) 8.2 mg/dL (8.5-10.1) Total Bilirubin 0.1 mg/dL (0.2-1.0) Aspartate Amino Transf (AST/SGOT) 23 U/L (15-37) Alanine Aminotransferase (ALT/SGPT) 37 U/L (14-59) Alkaline Phosphatase 110 U/L (46-116) Total Protein 8.1 g/dL (6.4-8.2) Albumin 3.4 g/dL (3.4-5.0) Albumin/Globulin Ratio 0.7 (1.0-1.7) Urine Collection Type Unknown Urine Color Yellow Urine Clarity Clear Urine pH 6.0 Urine Specific [place] 1.025 Urine Protein Negative mg/dL (NEG-TRACE) Urine Glucose (UA) Negative mg/dL (NEG) Urine Ketones (Stick) Negative mg/dL (NEG) Urine Blood Negative (NEG) Urine Nitrite Negative (NEG) Urine Bilirubin Negative (NEG) Urine Urobilinogen Dipstick 0.2 mg/dL (0.2 mg/dL) Urine Leukocyte Esterase Negative (NEG) Urine RBC 0 /HPF (0-2) Urine WBC Occ /HPF (0-4) Urine Squamous Epithelial Cells Few /LPF Urine Bacteria 0 /HPF (0-FEW) Urine Mucus Mod /LPF Urine Opiates Screen Neg (NEG) Urine Methadone Screen Neg (NEG) Urine Barbiturates Neg (NEG) Urine Phencyclidine Screen Neg (NEG) Urine Amphetamine/Methamphetamine Neg (NEG) Urine Benzodiazepines Screen Neg (NEG) Urine Cocaine Screen Neg (NEG) Urine Cannabinoids Screen Pos (NEG) Urine Ethyl Alcohol Neg (NEG) Laboratory Tests Test 10/05/19 21:10 10/05/19 22:00 10/06/19 04:26 White Blood Count 10.0 x10^3/uL (4.0-11.0) 9.1 x10^3/uL (4.0-11.0) Red Blood Count 4.73 x10^6/uL (3.50-5.40) 4.41 x10^6/uL (3.50-5.40) Hemoglobin 11.6 g/dL (12.0-15.5) 11.1 g/dL (12.0-15.5) Hematocrit 36.7 % (36.0-47.0) 34.4 % (36.0-47.0) Mean Corpuscular Volume 78 fL (79-100) 78 fL (79-100) Mean Corpuscular Hemoglobin 25 pg (25-35) 25 pg (25-35) Mean Corpuscular Hemoglobin Concent 32 g/dL (31-37) 32 g/dL (31-37) Red Cell Distribution Width 14.9 % (11.5-14.5) 15.2 % (11.5-14.5) Platelet Count 349 x10^3/uL (140-400) 306 x10^3/uL (140-400) Neutrophils (%) (Auto) 75 % (31-73) 66 % (31-73) Lymphocytes (%) (Auto) 20 % (24-48) 27 % (24-48) Monocytes (%) (Auto) 5 % (0-9) 6 % (0-9) Eosinophils (%) (Auto) 1 % (0-3) 1 % (0-3) Basophils (%) (Auto) 0 % (0-3) 0 % (0-3) Neutrophils # (Auto) 7.5 x10^3/uL (1.8-7.7) 6.1 x10^3/uL (1.8-7.7) Lymphocytes # (Auto) 2.0 x10^3/uL (1.0-4.8) 2.4 x10^3/uL (1.0-4.8) Monocytes # (Auto) 0.5 x10^3/uL (0.0-1.1) 0.6 x10^3/uL (0.0-1.1) Eosinophils # (Auto) 0.0 x10^3/uL (0.0-0.7) 0.1 x10^3/uL (0.0-0.7) Basophils # (Auto) 0.0 x10^3/uL (0.0-0.2) 0.0 x10^3/uL (0.0-0.2) Sodium Level 140 mmol/L (136-145) 141 mmol/L (136-145) Potassium Level 3.7 mmol/L (3.5-5.1) 3.8 mmol/L (3.5-5.1) Chloride Level 104 mmol/L (98-107) 104 mmol/L (98-107) Carbon Dioxide Level 25 mmol/L (21-32) 27 mmol/L (21-32) Anion Gap 11 (6-14) 10 (6-14) Blood Urea Nitrogen 11 mg/dL (7-20) 11 mg/dL (7-20) Creatinine 0.8 mg/dL (0.6-1.0) 0.7 mg/dL (0.6-1.0) Estimated GFR (Cockcroft-Gault) 108.5 126.6 BUN/Creatinine Ratio 14 (6-20) Glucose Level 101 mg/dL (70-99) 90 mg/dL (70-99) Lactic Acid Level 1.8 mmol/L (0.4-2.0) Calcium Level 8.7 mg/dL (8.5-10.1) 8.2 mg/dL (8.5-10.1) Total Bilirubin 0.1 mg/dL (0.2-1.0) Aspartate Amino Transf (AST/SGOT) 23 U/L (15-37) Alanine Aminotransferase (ALT/SGPT) 37 U/L (14-59) Alkaline Phosphatase 110 U/L (46-116) Total Protein 8.1 g/dL (6.4-8.2) Albumin 3.4 g/dL (3.4-5.0) Albumin/Globulin Ratio 0.7 (1.0-1.7) Urine Collection Type Unknown Urine Color Yellow Urine Clarity Clear Urine pH 6.0 Urine Specific [place] 1.025 Urine Protein Negative mg/dL (NEG-TRACE) Urine Glucose (UA) Negative mg/dL (NEG) Urine Ketones (Stick) Negative mg/dL (NEG) Urine Blood Negative (NEG) Urine Nitrite Negative (NEG) Urine Bilirubin Negative (NEG) Urine Urobilinogen Dipstick 0.2 mg/dL (0.2 mg/dL) Urine Leukocyte Esterase Negative (NEG) Urine RBC 0 /HPF (0-2) Urine WBC Occ /HPF (0-4) Urine Squamous Epithelial Cells Few /LPF Urine Bacteria 0 /HPF (0-FEW) Urine Mucus Mod /LPF Urine Opiates Screen Neg (NEG) Urine Methadone Screen Neg (NEG) Urine Barbiturates Neg (NEG) Urine Phencyclidine Screen Neg (NEG) Urine Amphetamine/Methamphetamine Neg (NEG) Urine Benzodiazepines Screen Neg (NEG) Urine Cocaine Screen Neg (NEG) Urine Cannabinoids Screen Pos (NEG) Urine Ethyl Alcohol Neg (NEG) VTE Prophylaxis Ordered VTE Prophylaxis Devices: Yes VTE Pharmacological Prophylaxi: Yes Assessment/Plan Assessment/Plan GTC sz [place] hx SZ Hx NPH, PSeudotumor cerebri? s/p MIGRATION SPECIALIST jacques sx etc [facility] yrs ago HX hydrocephalus as a child PLAN: Ativan prn CT head Neuro consult RONNY prec ok to eat Dw her and agrees with my plan NO PT needs FUll code DEYSI ROSARIO MD Oct 06, 2019 14:33
[2019-10-06 15:29] VITALS: BP 95/42
--- NOTE | 2019-10-06 15:53 | NUR ---
SS following for discharge planning. SS reviewed pt chart. Pt is from home and is currently on room air. SS will continue to follow for discharge planning.
--- NOTE | 2019-10-06 17:54 | PDOC2 ---
NEUROLOGY CONSULT Date of Admission Date of Admission DATE: 10/06/19 TIME: 17:24 Reason for Consult Reason for Consult: IMPRESSION: Seizure, drug induced. Non epileptic seizure combined. Cannabinoids positive in system. Morbid obesity. Emotional stress. RECOMMENDATIONS/PLAN: EEG. lab: see orders. Treat medical diseases. AEDs not effective and they are discontinued about a year ago by her neurologist. Patient education for drug abstinence. No driving x 6 months anytime after a seizure or seizure like episode. FU with her neurologist in . See psychiatry. EEG on 10/06/19: Normal. No epileptiform discharges nor electrographic seizure. History of Present Illness This is a 24-year-old obese female with history of seizure or seizure like episodes. She stated she was taking Keppra for about 2 years from 2016 to 2018 but it was discontinued about 1 year ago per instruction of her neurologists in . She stated she had 3 seizures in 2018 and some seizures in the previous years while on Keppra. She was told at that her seizures were non epileptic. She had a seizure or seizure like episode today on 10/06/19 but she was not able to provide detail information about her seizure. She stated she had a lot of emotional stress with family issues about her mother and her emotional stress can cause her seizures. Past Medical History Seizure, Other (NPH), Chiari malformation? Past Surgical History DEV MANAGER shunt. Family History No Significant. Allergies Coded Allergies: Amoxicillin (Verified Allergy, Intermediate, 01/31/19) MEDICATIONS: Refer to [facility] SOCIAL HISTORY: Lives with her friend. Unknown her smoking history. She use/abuse marijuana on a regular basis for years. On social disability(?) REVIEW OF SYSTEMS: Constitutional: Morbid obesity. Head: No traumatic brain or head injury. Skin: No edema, or rash. Ear: No infection.. Eyes: No vision loss or color blindness. Nose: No bleeding or purulent discharges. Hearing: No hearing decrease. Neck: No injury. Breast: No history of cancer, masses,or discharges. Cardiac: No AR, arrhythmia,claudication, CAD. Pulmonary: No pneumonia, COPD. GI: No GI ulcer, GI bleeding. Urinary/genital: No dysuria, incontinence, urinary retention. Endocrinologic: Morbid obesity. Skeletomuscular: No muscular atrophy, deformity. Neurological: see HP. Psychiatric: Marijuana use/abuse. Otherwise, not [id number] review of systems. PHYSICAL EXAMINATION: General appearance is in no acute distress. HEENT: Normocephalic and nontraumatic. Eyes, nose, ears, and throat are unremarkable. Neck is supple. No lymphadenopathy. No bruits are heard over the carotid artery. No crepitus. Cardiovascular: S1, S2, regular rate and rhythm. Pulmonary: Clear to auscultation bilaterally. Abdomen: Bowel sounds are positive. Abdomen is soft, nontender, and nondistended. Extremities: No rash, lesions, or edema. No restriction of range of motion NEUROLOGICAL EXAMINATION: Alert Oriented to time, place and person. PERRL. EOMI. CN: no focal findings. Muscle tone: within normal. Muscle strength: 5 DTR: 2 Plantar reflex: Flexor response bilaterally Gait: At baseline normal. Sensory exam: no abnormal findings. No cerebellar signs elicited. F-T-N test accurate. Current Medications Current Medications Current Medications Fentanyl Citrate (Fentanyl 2ml Vial) 50 mcg 1X ONCE IVP Last administered on 10/05/19at 21:40; Start 10/05/19 at 21:45; Stop 10/05/19 at 21:46; Status DC Ondansetron HCl (Zofran) 4 mg 1X ONCE IV Last administered on 10/05/19at 21:39; Start 10/05/19 at 21:45; Stop 10/05/19 at 21:46; Status DC Ondansetron HCl (Zofran) 4 mg PRN Q8HRS PRN IV NAUSEA/VOMITING; Start 10/05/19 at 23:15; Stop 10/06/19 at 08:46; Status DC Morphine Sulfate (Morphine Sulfate) 4 mg PRN Q2HR PRN IV PAIN Last administered on 10/06/19at 04:19; Start 10/05/19 at 23:15; Stop 10/06/19 at 08:46; Status DC Morphine Sulfate (Morphine Sulfate) 2 mg PRN Q2HR PRN IV MODERATE TO SEVERE PAIN Last administered on 10/06/19at 10:29; Start 10/06/19 at 08:15 Lorazepam (Ativan Inj) 2 mg PRN Q4HRS PRN IVP ANXIETY / AGITATION; Start 10/06/19 at 08:15 Ondansetron HCl (Zofran) 4 mg PRN Q6HRS PRN IVP NAUSEA/VOMITING; Start 10/06/19 at 08:15 Acetaminophen (Tylenol) 500 mg PRN Q6HRS PRN PO MILD PAIN / TEMP; Start 10/06/19 at 08:15 Acetaminophen/ Codeine Phosphate (Tylenol #3) 1 tab PRN Q6HRS PRN PO MODERATE PAIN; Start 10/06/19 at 08:15 Ibuprofen (Motrin) 400 mg PRN Q6HRS PRN PO INFLAMMATION; Start 10/06/19 at 08:15 Acetazolamide (Diamox) 500 mg BID PO ; Start 10/06/19 at 09:00 Benzonatate (Tessalon Perle) 100 mg TID PO ; Start 10/06/19 at 09:00 Non-Formulary Medication (Albuterol Sulfate (Ventolin Hfa Inhaler)) 2 puff Q4HRS INH ; Start 10/06/19 at 12:00; Status UNV Sertraline HCl (Zoloft) 100 mg DAILY PO ; Start 10/06/19 at 09:00 Albuterol Sulfate (Ventolin Neb Soln) 2.5 mg Q4HRS NEB Last administered on 10/06/19at 16:35; Start 10/06/19 at 09:00 Active Scripts Active Acetazolamide 500 Mg Capsule.er 500 Mg PO BID 14 Days Tessalon Perle (Benzonatate) 100 Mg Capsule 1 Cap PO TID Ventolin Hfa Inhaler (Albuterol Sulfate) 18 Gm Hfa.aer.ad 2 Puff INH Q4HRS Reported Sertraline Hcl 100 Mg Tablet 100 Mg PO DAILY Allergies Allergies: Allergies Coded Allergies Type Severity Reaction Last Updated Verified amoxicillin Allergy Intermediate 01/31/19 Yes ROS Review of System The patient denies any associated fevers, chills, headache, ear pain, rh inorrhea, sore throat, stiff neck, productive cough, chest pain, shortness of breath, back or flank pain, abdominal pain, nausea, vomiting, diarrhea, constipation, dysuria, rash, numbness, weakness, tingling, incontinence, difficulty ambulating, or diaphoresis. Physical Exam Physical Exam General: Well developed, well nourished, no acute distress, well appearing HEENT: Pupils equally round and reactive to light, EOMI, no discharge, normal conjunctiva Neck: Supple, no nuchal rigidity, no JVD, trachea midline, no tenderness Cardiac: RRR, no murmurs, no gallops, no rubs Chest/Lungs: CTAB, no wheeze, no rhonchi, no crackles Abdomen: soft, non-distended, no guarding, no peritoneal signs, non-tender Back: No tenderness Extremities: no edema, pulses intact, non-tender,capillary refill <3 sec bilateral upper and lower extremities, Neuro: Alert and oriented x 4, no focal deficits, normal speech Vitals Vitals: Vital Signs Date Time Temp Pulse Resp B/P (MAP) Pulse Ox O2 Delivery O2 Flow Rate FiO2 10/06/19 16:36 98 Room Air 10/06/19 15:29 98.2 74 18 95/42 (59) 98.2 Labs Labs Laboratory Tests Test 10/05/19 21:10 10/05/19 22:00 10/06/19 04:26 White Blood Count 10.0 x10^3/uL (4.0-11.0) 9.1 x10^3/uL (4.0-11.0) Red Blood Count 4.73 x10^6/uL (3.50-5.40) 4.41 x10^6/uL (3.50-5.40) Hemoglobin 11.6 g/dL (12.0-15.5) 11.1 g/dL (12.0-15.5) Hematocrit 36.7 % (36.0-47.0) 34.4 % (36.0-47.0) Mean Corpuscular Volume 78 fL (79-100) 78 fL (79-100) Mean Corpuscular Hemoglobin 25 pg (25-35) 25 pg (25-35) Mean Corpuscular Hemoglobin Concent 32 g/dL (31-37) 32 g/dL (31-37) Red Cell Distribution Width 14.9 % (11.5-14.5) 15.2 % (11.5-14.5) Platelet Count 349 x10^3/uL (140-400) 306 x10^3/uL (140-400) Neutrophils (%) (Auto) 75 % (31-73) 66 % (31-73) Lymphocytes (%) (Auto) 20 % (24-48) 27 % (24-48) Monocytes (%) (Auto) 5 % (0-9) 6 % (0-9) Eosinophils (%) (Auto) 1 % (0-3) 1 % (0-3) Basophils (%) (Auto) 0 % (0-3) 0 % (0-3) Neutrophils # (Auto) 7.5 x10^3/uL (1.8-7.7) 6.1 x10^3/uL (1.8-7.7) Lymphocytes # (Auto) 2.0 x10^3/uL (1.0-4.8) 2.4 x10^3/uL (1.0-4.8) Monocytes # (Auto) 0.5 x10^3/uL (0.0-1.1) 0.6 x10^3/uL (0.0-1.1) Eosinophils # (Auto) 0.0 x10^3/uL (0.0-0.7) 0.1 x10^3/uL (0.0-0.7) Basophils # (Auto) 0.0 x10^3/uL (0.0-0.2) 0.0 x10^3/uL (0.0-0.2) Sodium Level 140 mmol/L (136-145) 141 mmol/L (136-145) Potassium Level 3.7 mmol/L (3.5-5.1) 3.8 mmol/L (3.5-5.1) Chloride Level 104 mmol/L (98-107) 104 mmol/L (98-107) Carbon Dioxide Level 25 mmol/L (21-32) 27 mmol/L (21-32) Anion Gap 11 (6-14) 10 (6-14) Blood Urea Nitrogen 11 mg/dL (7-20) 11 mg/dL (7-20) Creatinine 0.8 mg/dL (0.6-1.0) 0.7 mg/dL (0.6-1.0) Estimated GFR (Cockcroft-Gault) 108.5 126.6 BUN/Creatinine Ratio 14 (6-20) Glucose Level 101 mg/dL (70-99) 90 mg/dL (70-99) Lactic Acid Level 1.8 mmol/L (0.4-2.0) Calcium Level 8.7 mg/dL (8.5-10.1) 8.2 mg/dL (8.5-10.1) Total Bilirubin 0.1 mg/dL (0.2-1.0) Aspartate Amino Transf (AST/SGOT) 23 U/L (15-37) Alanine Aminotransferase (ALT/SGPT) 37 U/L (14-59) Alkaline Phosphatase 110 U/L (46-116) Total Protein 8.1 g/dL (6.4-8.2) Albumin 3.4 g/dL (3.4-5.0) Albumin/Globulin Ratio 0.7 (1.0-1.7) Urine Collection Type Unknown Urine Color Yellow Urine Clarity Clear Urine pH 6.0 Urine Specific [place] 1.025 Urine Protein Negative mg/dL (NEG-TRACE) Urine Glucose (UA) Negative mg/dL (NEG) Urine Ketones (Stick) Negative mg/dL (NEG) Urine Blood Negative (NEG) Urine Nitrite Negative (NEG) Urine Bilirubin Negative (NEG) Urine Urobilinogen Dipstick 0.2 mg/dL (0.2 mg/dL) Urine Leukocyte Esterase Negative (NEG) Urine RBC 0 /HPF (0-2) Urine WBC Occ /HPF (0-4) Urine Squamous Epithelial Cells Few /LPF Urine Bacteria 0 /HPF (0-FEW) Urine Mucus Mod /LPF Urine Opiates Screen Neg (NEG) Urine Methadone Screen Neg (NEG) Urine Barbiturates Neg (NEG) Urine Phencyclidine Screen Neg (NEG) Urine Amphetamine/Methamphetamine Neg (NEG) Urine Benzodiazepines Screen Neg (NEG) Urine Cocaine Screen Neg (NEG) Urine Cannabinoids Screen Pos (NEG) Urine Ethyl Alcohol Neg (NEG) Laboratory Tests Test 10/05/19 21:10 10/05/19 22:00 10/06/19 04:26 White Blood Count 10.0 x10^3/uL (4.0-11.0) 9.1 x10^3/uL (4.0-11.0) Red Blood Count 4.73 x10^6/uL (3.50-5.40) 4.41 x10^6/uL (3.50-5.40) Hemoglobin 11.6 g/dL (12.0-15.5) 11.1 g/dL (12.0-15.5) Hematocrit 36.7 % (36.0-47.0) 34.4 % (36.0-47.0) Mean Corpuscular Volume 78 fL (79-100) 78 fL (79-100) Mean Corpuscular Hemoglobin 25 pg (25-35) 25 pg (25-35) Mean Corpuscular Hemoglobin Concent 32 g/dL (31-37) 32 g/dL (31-37) Red Cell Distribution Width 14.9 % (11.5-14.5) 15.2 % (11.5-14.5) Platelet Count 349 x10^3/uL (140-400) 306 x10^3/uL (140-400) Neutrophils (%) (Auto) 75 % (31-73) 66 % (31-73) Lymphocytes (%) (Auto) 20 % (24-48) 27 % (24-48) Monocytes (%) (Auto) 5 % (0-9) 6 % (0-9) Eosinophils (%) (Auto) 1 % (0-3) 1 % (0-3) Basophils (%) (Auto) 0 % (0-3) 0 % (0-3) Neutrophils # (Auto) 7.5 x10^3/uL (1.8-7.7) 6.1 x10^3/uL (1.8-7.7) Lymphocytes # (Auto) 2.0 x10^3/uL (1.0-4.8) 2.4 x10^3/uL (1.0-4.8) Monocytes # (Auto) 0.5 x10^3/uL (0.0-1.1) 0.6 x10^3/uL (0.0-1.1) Eosinophils # (Auto) 0.0 x10^3/uL (0.0-0.7) 0.1 x10^3/uL (0.0-0.7) Basophils # (Auto) 0.0 x10^3/uL (0.0-0.2) 0.0 x10^3/uL (0.0-0.2) Sodium Level 140 mmol/L (136-145) 141 mmol/L (136-145) Potassium Level 3.7 mmol/L (3.5-5.1) 3.8 mmol/L (3.5-5.1) Chloride Level 104 mmol/L (98-107) 104 mmol/L (98-107) Carbon Dioxide Level 25 mmol/L (21-32) 27 mmol/L (21-32) Anion Gap 11 (6-14) 10 (6-14) Blood Urea Nitrogen 11 mg/dL (7-20) 11 mg/dL (7-20) Creatinine 0.8 mg/dL (0.6-1.0) 0.7 mg/dL (0.6-1.0) Estimated GFR (Cockcroft-Gault) 108.5 126.6 BUN/Creatinine Ratio 14 (6-20) Glucose Level 101 mg/dL (70-99) 90 mg/dL (70-99) Lactic Acid Level 1.8 mmol/L (0.4-2.0) Calcium Level 8.7 mg/dL (8.5-10.1) 8.2 mg/dL (8.5-10.1) Total Bilirubin 0.1 mg/dL (0.2-1.0) Aspartate Amino Transf (AST/SGOT) 23 U/L (15-37) Alanine Aminotransferase (ALT/SGPT) 37 U/L (14-59) Alkaline Phosphatase 110 U/L (46-116) Total Protein 8.1 g/dL (6.4-8.2) Albumin 3.4 g/dL (3.4-5.0) Albumin/Globulin Ratio 0.7 (1.0-1.7) Urine Collection Type Unknown Urine Color Yellow Urine Clarity Clear Urine pH 6.0 Urine Specific [place] 1.025 Urine Protein Negative mg/dL (NEG-TRACE) Urine Glucose (UA) Negative mg/dL (NEG) Urine Ketones (Stick) Negative mg/dL (NEG) Urine Blood Negative (NEG) Urine Nitrite Negative (NEG) Urine Bilirubin Negative (NEG) Urine Urobilinogen Dipstick 0.2 mg/dL (0.2 mg/dL) Urine Leukocyte Esterase Negative (NEG) Urine RBC 0 /HPF (0-2) Urine WBC Occ /HPF (0-4) Urine Squamous Epithelial Cells Few /LPF Urine Bacteria 0 /HPF (0-FEW) Urine Mucus Mod /LPF Urine Opiates Screen Neg (NEG) Urine Methadone Screen Neg (NEG) Urine Barbiturates Neg (NEG) Urine Phencyclidine Screen Neg (NEG) Urine Amphetamine/Methamphetamine Neg (NEG) Urine Benzodiazepines Screen Neg (NEG) Urine Cocaine Screen Neg (NEG) Urine Cannabinoids Screen Pos (NEG) Urine Ethyl Alcohol Neg (NEG) NILA SWANSON MD Oct 06, 2019 17:54
[2019-10-06 19:00] VITALS: BP 131/73
--- NOTE | 2019-10-06 22:16 | EEG ---
DATE OF SERVICE: 10/06/2019 EEG NUMBER: [id number] OBJECTIVE: This is a 24-year-old -[place] female patient with history of seizure and marijuana use/abuse. EEG was requested to evaluate seizure activity. METHODS: Twenty electrodes were applied according to the international 10-20 electrode placement system. EKG monitoring, hyperventilation, intermittent photic stimulation, monopolar and bipolar montages are routinely utilized. The record was obtained on a digital system with video monitoring. FINDINGS: 1. Background: The patient was recorded in the awake and drowsy states. No actual sleep state was recorded. The overall background amplitude is 10-30 microvolts. A posterior dominant rhythm of 8-10 Hz is observed. 2. Abnormalities: No specific epileptiform discharge or electrographic seizure is seen. No focal or diffuse slowing. 3. Activation: Hyperventilation was performed with good efforts and normal response. Intermittent photic stimulation was performed with photic driving. No specific epileptiform discharge or electrographic seizure induced by hyperventilation or intermittent photic stimulation. IMPRESSION: This EEG is a normal study for the awake and drowsy states. No sleep state was recorded. No focal, lateralizing, specific epileptiform discharge or electrographic seizure is seen. NILA SWANSON MD DR: ZACH/elly JOB#: [id number] / [id number] JAYME
[2019-10-06 23:00] VITALS: BP 133/67
[2019-10-07 03:00] VITALS: BP 141/73
[2019-10-07] MEDS: ALBUTEROL SULFATE 2.5 MG/3 ML NEBU. NEB SCH ×2 (07:13→11:15)
[2019-10-07 07:57] VITALS: BP 152/84
[2019-10-07] MEDS: BENZONATATE 100 MG CAPSULE. PO SCH (09:00)
[2019-10-07] MEDS: MORPHINE SULFATE 2 MG/ML VIAL. IV PRN ×2 (09:03→12:58)
[2019-10-07] MEDS: SERTRALINE 50 MG TABLET. PO SCH (09:04)
--- NOTE | 2019-10-07 10:28 | PDOC ---
PROGRESS NOTES History of Present Illness History of Present Illness VTE Prophylaxis Ordered VTE Prophylaxis Devices: Yes VTE Pharmacological Prophylaxi: Yes DISCHARGE DX Assessment/Plan GTC sz sec substance abuse KNown hx SZ Seizure, drug induced. Non epileptic seizure combined. Cannabinoids positive in system. Morbid obesity. HX hydrocephalus as a child PLAN: d/c today 10/[address] head Neuro consult SZ prec ok to eat Dw her no thc NO PT needs D/C PLANNING 32 MIN Vitals Vitals Vital Signs Date Time Temp Pulse Resp B/P (MAP) Pulse Ox O2 Delivery O2 Flow Rate FiO2 10/07/19 09:03 99 Room Air 10/07/19 07:57 97.8 62 18 152/84 (106) 97.8 Physical Exam General: Alert, Oriented X3, Cooperative, No acute distress Heart: Regular rate, Normal S1, Normal S2 Lungs: Clear Abdomen: Normal bowel sounds, Soft, No tenderness, No hepatosplenomegaly, No masses Extremities: No clubbing, No cyanosis, No edema, Normal pulses, No tenderness/swelling Skin: No rashes, No breakdown, No significant lesion Assessment and Plan Assessmemt and Plan Problems Medical Problems: (1) Pseudotumor cerebri Status: Acute (2) Seizure Status: Acute Comment Review of Relevant I have reviewed the following items yari (where applicable) has been applied. Labs Laboratory Tests Test 10/05/19 21:10 10/05/19 22:00 10/06/19 04:26 White Blood Count 10.0 x10^3/uL (4.0-11.0) 9.1 x10^3/uL (4.0-11.0) Red Blood Count 4.73 x10^6/uL (3.50-5.40) 4.41 x10^6/uL (3.50-5.40) Hemoglobin 11.6 g/dL (12.0-15.5) 11.1 g/dL (12.0-15.5) Hematocrit 36.7 % (36.0-47.0) 34.4 % (36.0-47.0) Mean Corpuscular Volume 78 fL (79-100) 78 fL (79-100) Mean Corpuscular Hemoglobin 25 pg (25-35) 25 pg (25-35) Mean Corpuscular Hemoglobin Concent 32 g/dL (31-37) 32 g/dL (31-37) Red Cell Distribution Width 14.9 % (11.5-14.5) 15.2 % (11.5-14.5) Platelet Count 349 x10^3/uL (140-400) 306 x10^3/uL (140-400) Neutrophils (%) (Auto) 75 % (31-73) 66 % (31-73) Lymphocytes (%) (Auto) 20 % (24-48) 27 % (24-48) Monocytes (%) (Auto) 5 % (0-9) 6 % (0-9) Eosinophils (%) (Auto) 1 % (0-3) 1 % (0-3) Basophils (%) (Auto) 0 % (0-3) 0 % (0-3) Neutrophils # (Auto) 7.5 x10^3/uL (1.8-7.7) 6.1 x10^3/uL (1.8-7.7) Lymphocytes # (Auto) 2.0 x10^3/uL (1.0-4.8) 2.4 x10^3/uL (1.0-4.8) Monocytes # (Auto) 0.5 x10^3/uL (0.0-1.1) 0.6 x10^3/uL (0.0-1.1) Eosinophils # (Auto) 0.0 x10^3/uL (0.0-0.7) 0.1 x10^3/uL (0.0-0.7) Basophils # (Auto) 0.0 x10^3/uL (0.0-0.2) 0.0 x10^3/uL (0.0-0.2) Sodium Level 140 mmol/L (136-145) 141 mmol/L (136-145) Potassium Level 3.7 mmol/L (3.5-5.1) 3.8 mmol/L (3.5-5.1) Chloride Level 104 mmol/L (98-107) 104 mmol/L (98-107) Carbon Dioxide Level 25 mmol/L (21-32) 27 mmol/L (21-32) Anion Gap 11 (6-14) 10 (6-14) Blood Urea Nitrogen 11 mg/dL (7-20) 11 mg/dL (7-20) Creatinine 0.8 mg/dL (0.6-1.0) 0.7 mg/dL (0.6-1.0) Estimated GFR (Cockcroft-Gault) 108.5 126.6 BUN/Creatinine Ratio 14 (6-20) Glucose Level 101 mg/dL (70-99) 90 mg/dL (70-99) Lactic Acid Level 1.8 mmol/L (0.4-2.0) Calcium Level 8.7 mg/dL (8.5-10.1) 8.2 mg/dL (8.5-10.1) Total Bilirubin 0.1 mg/dL (0.2-1.0) Aspartate Amino Transf (AST/SGOT) 23 U/L (15-37) Alanine Aminotransferase (ALT/SGPT) 37 U/L (14-59) Alkaline Phosphatase 110 U/L (46-116) Total Protein 8.1 g/dL (6.4-8.2) Albumin 3.4 g/dL (3.4-5.0) Albumin/Globulin Ratio 0.7 (1.0-1.7) Urine Collection Type Unknown Urine Color Yellow Urine Clarity Clear Urine pH 6.0 Urine Specific [place] 1.025 Urine Protein Negative mg/dL (NEG-TRACE) Urine Glucose (UA) Negative mg/dL (NEG) Urine Ketones (Stick) Negative mg/dL (NEG) Urine Blood Negative (NEG) Urine Nitrite Negative (NEG) Urine Bilirubin Negative (NEG) Urine Urobilinogen Dipstick 0.2 mg/dL (0.2 mg/dL) Urine Leukocyte Esterase Negative (NEG) Urine RBC 0 /HPF (0-2) Urine WBC Occ /HPF (0-4) Urine Squamous Epithelial Cells Few /LPF Urine Bacteria 0 /HPF (0-FEW) Urine Mucus Mod /LPF Urine Opiates Screen Neg (NEG) Urine Methadone Screen Neg (NEG) Urine Barbiturates Neg (NEG) Urine Phencyclidine Screen Neg (NEG) Urine Amphetamine/Methamphetamine Neg (NEG) Urine Benzodiazepines Screen Neg (NEG) Urine Cocaine Screen Neg (NEG) Urine Cannabinoids Screen Pos (NEG) Urine Ethyl Alcohol Neg (NEG) Medications Current Medications Fentanyl Citrate (Fentanyl 2ml Vial) 50 mcg 1X ONCE IVP Last administered on 10/05/19at 21:40; Start 12/17/19 at 21:45; Stop 10/05/19 at 21:46; Status DC Ondansetron HCl (Zofran) 4 mg 1X ONCE IV Last administered on 10/05/19at 21:39; Start 10/05/19 at 21:45; Stop 10/05/19 at 21:46; Status DC Ondansetron HCl (Zofran) 4 mg PRN Q8HRS PRN IV NAUSEA/VOMITING; Start 10/05/19 at 23:15; Stop 10/06/19 at 08:46; Status DC Morphine Sulfate (Morphine Sulfate) 4 mg PRN Q2HR PRN IV PAIN Last administered on 10/06/19at 04:19; Start 10/05/19 at 23:15; Stop 10/06/19 at 08:46; Status DC Morphine Sulfate (Morphine Sulfate) 2 mg PRN Q2HR PRN IV MODERATE TO SEVERE PAIN Last administered on 10/07/19at 09:03; Start 10/06/19 at 08:15 Lorazepam (Ativan Inj) 2 mg PRN Q4HRS PRN IVP ANXIETY / AGITATION; Start 10/06/19 at 08:15 Ondansetron HCl (Zofran) 4 mg PRN Q6HRS PRN IVP NAUSEA/VOMITING; Start 10/06/19 at 08:15 Acetaminophen (Tylenol) 500 mg PRN Q6HRS PRN PO MILD PAIN / TEMP; Start 10/06/19 at 08:15 Acetaminophen/ Codeine Phosphate (Tylenol #3) 1 tab PRN Q6HRS PRN PO MODERATE PAIN Last administered on 10/06/19at 20:51; Start 10/06/19 at 08:15 Ibuprofen (Motrin) 400 mg PRN Q6HRS PRN PO INFLAMMATION; Start 10/06/19 at 08:15 Acetazolamide (Diamox) 500 mg BID PO Last administered on 10/07/19at 09:04; Start 10/06/19 at 09:00 Benzonatate (Tessalon Perle) 100 mg TID PO ; Start 10/06/19 at 09:00 Non-Formulary Medication (Albuterol Sulfate (Ventolin Hfa Inhaler)) 2 puff Q4HRS INH ; Start 10/06/19 at 12:00; Status UNV Sertraline HCl (Zoloft) 100 mg DAILY PO Last administered on 10/07/19at 09:04; Start 10/06/19 at 09:00 Albuterol Sulfate (Ventolin Neb Soln) 2.5 mg Q4HRS NEB Last administered on 10/06/19at 19:38; Start 10/06/19 at 09:00; Stop 10/06/19 at 23:03; Status DC Albuterol Sulfate (Ventolin Neb Soln) 2.5 mg RTQID NEB Last administered on 10/07/19at 07:13; Start 10/07/19 at 08:00 Active Scripts Active Acetazolamide 500 Mg Capsule.er 500 Mg PO BID 14 Days Tessalon Perle (Benzonatate) 100 Mg Capsule 1 Cap PO TID Ventolin Hfa Inhaler (Albuterol Sulfate) 18 Gm Hfa.aer.ad 2 Puff INH Q4HRS Reported Sertraline Hcl 100 Mg Tablet 100 Mg PO DAILY Vitals/I & O Vital Sign - Last 24 Hours 10/06/19 10/06/19 10/06/19 10/06/19 10:29 11:00 11:19 11:50 Temp 98.7 98.7 Pulse 73 Resp B/P (MAP) 116/69 (85) Pulse Ox 96 98 97 98 O2 Delivery Room Air Room Air Room Air Room Air 10/06/19 10/06/19 10/06/19 10/06/19 15:29 16:36 17:28 17:58 Temp 98.2 98.2 Pulse 74 Resp B/P (MAP) 95/42 (59) Pulse Ox 99 98 98 98 O2 Delivery Room Air Room Air Room Air Room Air 10/06/19 10/06/19 10/06/19 10/06/19 19:00 19:39 20:00 23:00 Temp 98.0 98.3 98.0 98.3 Pulse 82 79 Resp 17 17 B/P (MAP) 131/73 (92) 133/67 (89) Pulse Ox 97 97 96 O2 Delivery Room Air Room Air Room Air Room Air 10/07/19 10/07/19 10/07/19 10/07/19 03:00 07:13 07:57 09:03 Temp 97.8 97.8 97.8 97.8 Pulse 71 62 Resp 16 18 B/P (MAP) 141/73 (95) 152/84 (106) Pulse Ox 94 98 99 99 O2 Delivery Room Air Room Air Room Air Room Air Intake and Output 10/06/19 10/06/19 10/07/19 15:00 23:00 07:00 Intake Total 240 ml 420 ml 1700 ml Balance 240 ml 420 ml 1700 ml LINDA TRAN MD Oct 07, 2019 10:28
[2019-10-07 11:45] VITALS: BP 130/78
--- NOTE | 2019-10-07 12:41 | PDOC3 ---
Discharge Summary Date of Admission: Oct 06, 2019 Date of Discharge: Oct 07, 2019 Follow-Up: 3-5 days Admitting Diagnosis comment: DISCHARGE DX Assessment/Plan GTC sz sec substance abuse KNown hx SZ Seizure, drug induced. Non epileptic seizure combined. Cannabinoids positive in system. Morbid obesity. HX hydrocephalus as a child PLAN: d/c today 10/[address] head Neuro consult SZ prec ok to eat Dw her no thc NO PT needs D/C PLANNING 32 MIN Vitals Vitals Vital Signs Date Time Temp Pulse Resp B/P (MAP) Pulse Ox O2 Delivery O2 Flow Rate FiO2 10/07/19 09:03 99 Room Air 10/07/19 07:57 97.8 62 18 152/84 (106) 97.8 Physical Exam General: Alert, Oriented X3, Cooperative, No acute distress Heart: Regular rate, Normal S1, Normal S2 Lungs: Clear Abdomen: Normal bowel sounds, Soft, No tenderness, No hepatosplenomegaly, No masses Extremities: No clubbing, No cyanosis, No edema, Normal pulses, No tendernes s/swelling Skin: No rashes, No breakdown, No significant lesion Assessment and Plan Assessmemt and Plan Problems Medical Problems: (1) Pseudotumor cerebri Status: Acute (2) Seizure Status: Acute FINAL DIAGNOSIS Problems Medical Problems: (1) Pseudotumor cerebri Status: Acute (2) Seizure Status: Acute Brief Hospital Course Ms. Groves is a 24 old [sex] who presented with [ THC INDUCED SEIZURE ] CONDITION AT DISCHARGE: Improved Discharge Medications Current Medications Fentanyl Citrate (Fentanyl 2ml Vial) 50 mcg 1X ONCE IVP Last administered on 10/05/19at 21:40; Start 10/05/19 at 21:45; Stop 10/05/19 at 21:46; Status DC Ondansetron HCl (Zofran) 4 mg 1X ONCE IV Last administered on 10/05/19at 21:39; Start 10/05/19 at 21:45; Stop 10/05/19 at 21:46; Status DC Ondansetron HCl (Zofran) 4 mg PRN Q8HRS PRN IV NAUSEA/VOMITING; Start 10/05/19 at 23:15; Stop 10/06/19 at 08:46; Status DC Morphine Sulfate (Morphine Sulfate) 4 mg PRN Q2HR PRN IV PAIN Last administered on 10/06/19at 04:19; Start 10/05/19 at 23:15; Stop 10/06/19 at 08:46; Status DC Morphine Sulfate (Morphine Sulfate) 2 mg PRN Q2HR PRN IV MODERATE TO SEVERE PAIN Last administered on 10/07/19at 09:03; Start 10/06/19 at 08:15 Lorazepam (Ativan Inj) 2 mg PRN Q4HRS PRN IVP ANXIETY / AGITATION; Start 10/06/19 at 08:15 Ondansetron HCl (Zofran) 4 mg PRN Q6HRS PRN IVP NAUSEA/VOMITING; Start 10/06/19 at 08:15 Acetaminophen (Tylenol) 500 mg PRN Q6HRS PRN PO MILD PAIN / TEMP; Start 10/06/19 at 08:15 Acetaminophen/ Codeine Phosphate (Tylenol #3) 1 tab PRN Q6HRS PRN PO MODERATE PAIN Last administered on 10/06/19at 20:51; Start 10/06/19 at 08:15 Ibuprofen (Motrin) 400 mg PRN Q6HRS PRN PO INFLAMMATION; Start 10/06/19 at 08:15 Acetazolamide (Diamox) 500 mg BID PO Last administered on 10/07/19at 09:04; Start 10/06/19 at 09:00 Benzonatate (Tessalon Perle) 100 mg TID PO ; Start 10/06/19 at 09:00 Non-Formulary Medication (Albuterol Sulfate (Ventolin Hfa Inhaler)) 2 puff Q4HRS INH ; Start 10/06/19 at 12:00; Status UNV Sertraline HCl (Zoloft) 100 mg DAILY PO Last administered on 10/07/19at 09:04; Start 10/06/19 at 09:00 Albuterol Sulfate (Ventolin Neb Soln) 2.5 mg Q4HRS NEB Last administered on 10/06/19at 19:38; Start 10/06/19 at 09:00; Stop 10/06/19 at 23:03; Status DC Albuterol Sulfate (Ventolin Neb Soln) 2.5 mg RTQID NEB Last administered on 10/07/19at 11:15; Start 10/07/19 at 08:00 Active Scripts Active Acetazolamide 500 Mg Capsule.er 500 Mg PO BID 14 Days Tessalon Perle (Benzonatate) 100 Mg Capsule 1 Cap PO TID Ventolin Hfa Inhaler (Albuterol Sulfate) 18 Gm Hfa.aer.ad 2 Puff INH Q4HRS Reported Sertraline Hcl 100 Mg Tablet 100 Mg PO DAILY Vital Signs Vital Signs Date Time Temp Pulse Resp B/P (MAP) Pulse Ox O2 Delivery O2 Flow Rate FiO2 10/07/19 11:45 97.6 73 18 130/78 (95) 99 Room Air 97.6 Labs Laboratory Tests Test 10/05/19 21:10 10/05/19 22:00 10/06/19 04:26 White Blood Count 10.0 x10^3/uL (4.0-11.0) 9.1 x10^3/uL (4.0-11.0) Red Blood Count 4.73 x10^6/uL (3.50-5.40) 4.41 x10^6/uL (3.50-5.40) Hemoglobin 11.6 g/dL (12.0-15.5) 11.1 g/dL (12.0-15.5) Hematocrit 36.7 % (36.0-47.0) 34.4 % (36.0-47.0) Mean Corpuscular Volume 78 fL (79-100) 78 fL (79-100) Mean Corpuscular Hemoglobin 25 pg (25-35) 25 pg (25-35) Mean Corpuscular Hemoglobin Concent 32 g/dL (31-37) 32 g/dL (31-37) Red Cell Distribution Width 14.9 % (11.5-14.5) 15.2 % (11.5-14.5) Platelet Count 349 x10^3/uL (140-400) 306 x10^3/uL (140-400) Neutrophils (%) (Auto) 75 % (31-73) 66 % (31-73) Lymphocytes (%) (Auto) 20 % (24-48) 27 % (24-48) Monocytes (%) (Auto) 5 % (0-9) 6 % (0-9) Eosinophils (%) (Auto) 1 % (0-3) 1 % (0-3) Basophils (%) (Auto) 0 % (0-3) 0 % (0-3) Neutrophils # (Auto) 7.5 x10^3/uL (1.8-7.7) 6.1 x10^3/uL (1.8-7.7) Lymphocytes # (Auto) 2.0 x10^3/uL (1.0-4.8) 2.4 x10^3/uL (1.0-4.8) Monocytes # (Auto) 0.5 x10^3/uL (0.0-1.1) 0.6 x10^3/uL (0.0-1.1) Eosinophils # (Auto) 0.0 x10^3/uL (0.0-0.7) 0.1 x10^3/uL (0.0-0.7) Basophils # (Auto) 0.0 x10^3/uL (0.0-0.2) 0.0 x10^3/uL (0.0-0.2) Sodium Level 140 mmol/L (136-145) 141 mmol/L (136-145) Potassium Level 3.7 mmol/L (3.5-5.1) 3.8 mmol/L (3.5-5.1) Chloride Level 104 mmol/L (98-107) 104 mmol/L (98-107) Carbon Dioxide Level 25 mmol/L (21-32) 27 mmol/L (21-32) Anion Gap 11 (6-14) 10 (6-14) Blood Urea Nitrogen 11 mg/dL (7-20) 11 mg/dL (7-20) Creatinine 0.8 mg/dL (0.6-1.0) 0.7 mg/dL (0.6-1.0) Estimated GFR (Cockcroft-Gault) 108.5 126.6 BUN/Creatinine Ratio 14 (6-20) Glucose Level 101 mg/dL (70-99) 90 mg/dL (70-99) Lactic Acid Level 1.8 mmol/L (0.4-2.0) Calcium Level 8.7 mg/dL (8.5-10.1) 8.2 mg/dL (8.5-10.1) Total Bilirubin 0.1 mg/dL (0.2-1.0) Aspartate Amino Transf (AST/SGOT) 23 U/L (15-37) Alanine Aminotransferase (ALT/SGPT) 37 U/L (14-59) Alkaline Phosphatase 110 U/L (46-116) Total Protein 8.1 g/dL (6.4-8.2) Albumin 3.4 g/dL (3.4-5.0) Albumin/Globulin Ratio 0.7 (1.0-1.7) Urine Collection Type Unknown Urine Color Yellow Urine Clarity Clear Urine pH 6.0 Urine Specific [place] 1.025 Urine Protein Negative mg/dL (NEG-TRACE) Urine Glucose (UA) Negative mg/dL (NEG) Urine Ketones (Stick) Negative mg/dL (NEG) Urine Blood Negative (NEG) Urine Nitrite Negative (NEG) Urine Bilirubin Negative (NEG) Urine Urobilinogen Dipstick 0.2 mg/dL (0.2 mg/dL) Urine Leukocyte Esterase Negative (NEG) Urine RBC 0 /HPF (0-2) Urine WBC Occ /HPF (0-4) Urine Squamous Epithelial Cells Few /LPF Urine Bacteria 0 /HPF (0-FEW) Urine Mucus Mod /LPF Urine Opiates Screen Neg (NEG) Urine Methadone Screen Neg (NEG) Urine Barbiturates Neg (NEG) Urine Phencyclidine Screen Neg (NEG) Urine Amphetamine/Methamphetamine Neg (NEG) Urine Benzodiazepines Screen Neg (NEG) Urine Cocaine Screen Neg (NEG) Urine Cannabinoids Screen Pos (NEG) Urine Ethyl Alcohol Neg (NEG) Allergies Allergies Coded Allergies Type Severity Reaction Last Updated Verified amoxicillin Allergy Intermediate 01/31/19 Yes Disposition/Orders: D/C to Home LINDA TRAN MD Oct 07, 2019 12:41
[2019-10-07] MEDS ORDERED: ACET500T68 PO (12:43)
--- NOTE | 2019-10-07 13:27 | NUR ---
Discharge Note: DENIZ LEWIS [address] Discharge instructions and discharge home medications reviewed with Patient and a copy given. All questions have been answered and understanding verbalized. The following instructions and handouts were given: follow up instructions. Discontinued lines and drains: 20 gauge right AC, tip intact. patient tolerated well. Patient discharged to home with self care via significant other.
--- NOTE | 2019-10-07 16:41 | PDOC ---
PROGRESS NOTES Assessment Assessment Seizure, drug induced. Non epileptic seizure combined. Cannabinoids positive in system. Morbid obesity. Emotional stress. IIP per hx. RECOMMENDATIONS/PLAN:. Treat medical diseases. AEDs not effective and they were discontinued about a year ago by her neurologist. Continue Diamox. Patient education for drug abstinence. No driving x 6 months anytime after a seizure or seizure like episode, and she fully understood. She stated she does not drive anyway. FU with her neurologist in . She has appointment in 10/07. See psychiatry. FU with PCP. EEG on 10/06/19: Normal. No epileptiform discharges nor electrographic seizure. History of Present Illness This is a 24-year-old obese female with history of seizure or seizure like episodes. She stated she was taking Keppra for about 2 years from 2016 to 2018 but it was discontinued about 1 year ago per instruction of her neurologists in . She stated she had 3 seizures in 2018 and some seizures in the previous years while on Keppra. She also took Topamax in the past. She was told at that her seizures were non epileptic. She had a seizure or seizure like episode today on 10/06/19 but she was not able to provide detail information about her seizure. She stated she had a lot of emotional stress with family issues about her mother and her emotional stress can cause her seizures. 10/07/19: No seizures since here. Her girl friend described on 10/07/19 that her seizure as shaking movements in her UE for one to a few minutes. She called her name and she had some response shortly afterwards. No clear postictal state. She was trying to do activities after her episode. Past Medical History Seizure, Other (NPH), Chiari malformation? Past Surgical History [employer] shunt. Family History No Significant. Allergies Coded Allergies: Amoxicillin (Verified Allergy, Intermediate, 01/31/19) MEDICATIONS: Refer to [facility] SOCIAL HISTORY: Lives with her friend. Unknown her smoking history. She use/abuse marijuana on a regular basis for years. On social disability(?) REVIEW OF SYSTEMS: Constitutional: Morbid obesity. Head: No traumatic brain or head injury. Skin: No edema, or rash. Ear: No infection.. Eyes: No vision loss or color blindness. Nose: No bleeding or purulent discharges. Hearing: No hearing decrease. Neck: No injury. Breast: No history of cancer, masses,or discharges. Cardiac: No UT, arrhythmia,claudication, CAD. Pulmonary: No pneumonia, COPD. GI: No GI ulcer, GI bleeding. Urinary/genital: No dysuria, incontinence, urinary retention. Endocrinologic: Morbid obesity. Skeletomuscular: No muscular atrophy, deformity. Neurological: see HP. Psychiatric: Marijuana use/abuse. Otherwise, not [id number] review of systems. PHYSICAL EXAMINATION: General appearance is in no acute distress. HEENT: Normocephalic and nontraumatic. Eyes, nose, ears, and throat are unremarkable. Neck is supple. No lymphadenopathy. No bruits are heard over the carotid artery. No crepitus. Cardiovascular: S1, S2, regular rate and rhythm. Pulmonary: Clear to auscultation bilaterally. Abdomen: Bowel sounds are positive. Abdomen is soft, nontender, and nondistended. Extremities: No rash, lesions, or edema. No restriction of range of motion NEUROLOGICAL EXAMINATION: Alert Oriented to time, place and person. PERRL. EOMI. CN: no focal findings. Muscle tone: within normal. Muscle strength: 5 DTR: 2 Plantar reflex: Flexor response bilaterally Gait: At baseline normal. Sensory exam: no abnormal findings. No cerebellar signs elicited. F-T-N test accurate. Objective Objective Vital Signs Date Time Temp Pulse Resp B/P (MAP) Pulse Ox O2 Delivery O2 Flow Rate FiO2 10/07/19 12:58 99 Room Air 10/07/19 11:45 97.6 73 18 130/78 (95) 97.6 Intake and Output 10/07/19 07:00 Intake Total 2360 ml Balance 2360 ml Intake Oral 2360 ml # Voids 7 Vitals Signs Vitals VS - Last 72 Hours, by Label Date Time Temp Pulse Resp B/P (MAP) Pulse Ox O2 Delivery O2 Flow Rate FiO2 10/07/19 12:58 99 Room Air 10/07/19 11:45 97.6 73 18 130/78 (95) 99 Room Air 97.6 10/07/19 11:16 98 Room Air 10/07/19 09:33 98 Room Air 10/07/19 09:03 99 Room Air 10/07/19 08:00 Room Air 10/07/19 07:57 97.8 62 18 152/84 (106) 99 Room Air 97.8 10/07/19 07:13 98 Room Air 10/07/19 03:00 97.8 71 16 141/73 (95) 94 Room Air 97.8 10/06/19 23:00 98.3 79 17 133/67 (89) 96 Room Air 98.3 10/06/19 20:00 Room Air 10/06/19 19:39 97 Room Air 10/06/19 19:00 98.0 82 17 131/73 (92) 97 Room Air 98.0 10/06/19 17:58 19 98 Room Air 10/06/19 17:28 19 98 Room Air 10/06/19 16:36 98 Room Air 10/06/19 15:29 98.2 74 18 95/42 (59) 99 Room Air 98.2 10/06/19 11:50 98 Room Air 10/06/19 11:19 98.7 73 18 116/69 (85) 97 Room Air 98.7 10/06/19 11:00 19 98 Room Air 10/06/19 10:29 19 96 Room Air 10/06/19 08:00 Room Air 10/06/19 07:00 98.4 69 18 135/69 (91) 96 Room Air 98.4 Medication Medications Current Medications Albuterol Sulfate (Ventolin Neb Soln) 2.5 mg RTQID NEB Last administered on 10/07/19at 11:15; Start 10/07/19 at 08:00; Stop 10/07/19 at 13:52; Status DC Comment Review of Relevant I have reviewed the following items yari (where applicable) has been applied. NILA SWANSON MD Oct 07, 2019 16:41
== END 2019-10-07 13:30 | DRG 101 ==
LOC: ER 21:06 → 6 SOUTH 23:08
PROVIDERS: ADMIT Family Medicine; ATTEND Family Medicine
DX: G40.89 Other seizures (principal); Z68.43 Body mass index [BMI] 50.0-59.9, adult; G93.2 Benign intracranial hypertension; J45.909 Unspecified asthma, uncomplicated; E66.01 Morbid (severe) obesity due to excess calories; F12.10 Cannabis abuse, uncomplicated; Z88.8 Allergy status to other drugs, medicaments and biological substances; Z79.899 Other long term (current) drug therapy; Z98.2 Presence of cerebrospinal fluid drainage device
CPT/HCPCS: 36415; 70450; 80048; 80053; 80307; 81001; 83605; 85025; 94640; 95816; 96374; 96375; J2270; J2405; J3010; J7613; 99285-25; G0378

== ENCOUNTER 2019-10-26 19:06 | Emergency (ER) | payer MEDICAID ==
[~2019-10-26] VITALS: Ht 162.6 cm; Wt 122.5 kg
[~2019-10-26 19:06] MED LIST changes: +ACET500T68 PO; +SERT100T8 PO
[2019-10-26 19:55] VITALS: BP 147/99
--- NOTE | 2019-10-26 20:40 | PHYS DOC ---
Past Medical History Past Medical History: Asthma, Seizure, Other Additional Past Medical Histor: BENIGN BRAIN MASS,HYDROCEPHALUS,SCIATICA,PSEUDO TUMOR,CRANIOSYNOTOSIS (ESEQUIEL GREEN APRN) Past Surgical History: Other Additional Past Surgical Histo: CHIARI MALFORMATIVE -2015, "BACK SURGERY",SKULL X3 (ESEQUIEL GREEN APRN) Alcohol Use: Occasionally Drug Use: Marijuana (ESEQUIEL GREEN APRN) Attending Signature I have participated in the care of this patient and I have reviewed and agree with all pertinent clinical information above including history, exam, and recommendations. (SHIVA ALVAREZ MD) Adult General Chief Complaint Chief Complaint: HEADACHE HPI HPI Patient is a 24 year old female complains of right sided head pain. Patient reports she has a history of seizures, related to increased stress. Reports she has seizure partner 2 weeks ago, when she had fallen and struck the right side of her head and face. Reports since that time she has continued to have some pain to the right side of her face, jaw, said some increased blurred vision to the right side of her face. Does report she has a history of Chiari malformation, pulse reports she has been talking to her neurosurgeon and they have been considering putting a stent in the anterior portion of her brain to manage her visual changes. Denies any nausea, vomiting, weakness. Denies any additional complaints, reports she is just concerned since he is continued to have this pain in the right side of her face. She has taken some Tylenol for the discomfort. (ESEQUIEL GREEN APRN) Review of Systems Review of Systems Constitutional: Denies fever or chills [] Eyes: Does report some right eye increased blurred vision over the last few days since she has had the fall HENT: Denies nasal congestion or sore throat [] Respiratory: Denies cough or shortness of breath [] Cardiovascular: No additional information not addressed in HPI [] GI: Denies abdominal pain, nausea, vomiting, bloody stools or diarrhea [] : Denies dysuria or hematuria [] Musculoskeletal: Denies back pain or joint pain [] Integument: Denies rash or skin lesions [] Neurologic: Reports headache, denies focal weakness, denies sensory changes Endocrine: Denies polyuria or polydipsia [] All other systems were reviewed and found to be within normal limits, except as documented in this note. (ESEQUIEL GREEN APRN) Current Medications Current Medications Current Medications Medications (Trade) Dose Ordered Sig/Dorian Start Time Stop Time Status Last Admin Dose Admin Acetaminophen (Tylenol) 1,000 mg 1X ONCE 10/26/19 22:00 10/26/19 21:46 DC (SHIVA ALVAREZ MD) Allergies Allergies Allergies Coded Allergies Type Severity Reaction Last Updated Verified amoxicillin Allergy Intermediate 01/31/19 Yes (SHIVA ALVAREZ MD) Physical Exam Physical Exam Constitutional: Well developed, well nourished, no acute distress, non-toxic appearance. [] HENT: Normocephalic, atraumatic, bilateral external ears normal small amount of fluid noted behind] tabetic memory, no erythema., oropharynx moist, no oral exudates, nose normal. Normal dentition. Minimal tenderness noted to right hoahaoism, noting where she is having discomfort[] Eyes: PERRLA, EOMI, conjunctiva normal, no discharge. [] Neck: Normal range of motion, no tenderness, supple, no stridor. [] Cardiovascular:Heart rate regular rhythm, no murmur [] Lungs & Thorax: Bilateral breath sounds clear to auscultation [] Abdomen: Bowel sounds normal, soft, no tenderness, no masses, no pulsatile masses. [] Skin: Warm, dry, no erythema, no rash. [] Back: No tenderness, no CVA tenderness. [] Extremities: No tenderness, no cyanosis, no clubbing, ROM intact, no edema. [] Neurologic: Alert and oriented X 3, normal motor function, normal sensory function, no focal deficits noted. [] Psychologic: Affect normal, judgement normal, mood normal. [] (ESEQUIEL GREEN APRN) Current Patient Data Vital Signs Vital Signs Date Time Temp Pulse Resp B/P (MAP) Pulse Ox O2 Delivery O2 Flow Rate FiO2 10/26/19 19:55 98.6 89 16 147/99 (115) 95 Room Air 98.6 (SHIVA ALVAREZ MD) EKG EKG [] (ESEQUIEL GREEN APRN) Radiology/Procedures Radiology/Procedures FINDINGS: There is Chiari malformation and evidence of prior suboccipital decompression surgery similar to prior exam. No evidence of acute intracranial hemorrhage. No extra-axial fluid collections. No mass effect or midline shift. Ventricular size is appropriate. Basal cisterns are patent. No fractures identified.Fleming-white differentiation is preserved.Globes and orbits are within normal limits. Paranasal sinuses and mastoid air cells are clear. IMPRESSION: 1. No acute intracranial findings. Electronically signed by: Peyman Serrano MD (10/26/2019 9:17 PM) [facility] [] (ESEQUIEL GREEN APRN) Course & Med Decision Making Course & Med Decision Making Pertinent Labs and Imaging studies reviewed. (See chart for details) [Discussed results the patient, without noted abnormalities on brain scan. Advised patient to continue follow-up with her neurologist as previously scheduled, continue take Tylenol for discomfort as needed. Recommend taking decongestants due to some fluid level noted in right ear, onset of discomfort. Advised patient to try Flonase, continue Tylenol she has been taking. We'll try to do some Tylenol here before she goes. Patient agreement with plan] (ESEQUIEL GREEN APRN) Dragon Disclaimer Dragon Disclaimer This electronic medical record was generated, in whole or in part, using a voice recognition dictation system. (ESEQUIEL GREEN APRN) Departure Departure Impression: Primary Impression: Head pain Disposition: HOME, SELF-CARE Condition: STABLE Referrals: ARTURO DASH (PCP) Patient Instructions: Headache and Allergies Additional Instructions: As we discussed, continue to try Flonase or some other decongestant to relieve the pressure that is behind the right ear which is likely causing the discomfort on the right side of her head. Follow-up with your neurologist as he previously had scheduled. Follow-up through primary care provider if he continues to have this headache. You may take Tylenol again after 2:00 in the morning after your dose here in the hospital. Problem Qualifiers Primary Impression: Head pain Headache type: other headache syndrome Qualified Codes: G44.89 - Other headache syndrome ESEQUIEL GREEN APRN Oct 26, 2019 20:40 SHIVA ALVAREZ MD Oct 27, 2019 07:54
--- NOTE | 2019-10-26 21:20 | RAD ---
CT HEAD INDICATION: Seizure, headache COMPARISON: 10/06/2019 Exposure: One or more of the following individualized dose reduction techniques were utilized for this examination: 1. Automated exposure control 2. Adjustment of the mA and/or kV according to patient size 3. Use of iterative reconstruction technique TECHNIQUE: 5 mm contiguous axial images were obtained from the skull base to the vertex in both bone and soft tissue algorithm. FINDINGS: There is Chiari malformation and evidence of prior suboccipital decompression surgery similar to prior exam. No evidence of acute intracranial hemorrhage. No extra-axial fluid collections. No mass effect or midline shift. Ventricular size is appropriate. Basal cisterns are patent. No fractures identified.Fleming-white differentiation is preserved.Globes and orbits are within normal limits. Paranasal sinuses and mastoid air cells are clear. IMPRESSION: 1. No acute intracranial findings. Electronically signed by: Peyman Serrano MD (10/26/2019 9:17 PM) [facility]
[2019-10-26] MEDS ORDERED: ACETAMINOPHEN 500 MG TABLET PO ONE (22:00)
== END 2019-10-26 21:46 | disposition home or self-care (01) ==
LOC: ER 19:06
DX: G44.89 Other headache syndrome (principal); J45.909 Unspecified asthma, uncomplicated; Z88.1 Allergy status to other antibiotic agents
CPT/HCPCS: 70450; 99284-25

== ENCOUNTER 2021-02-17 15:16 | Emergency (ER) | payer MEDICAID ==
[~2021-02-17] VITALS: Ht 162.6 cm; Wt 125.0 kg
[~2021-02-17 15:16] MED LIST changes: +SERT-268 PO; -SERT100T8 PO
[2021-02-17 15:30] VITALS: BP 148/87
--- NOTE | 2021-02-17 16:37 | PHYS DOC ---
Past Medical History Past Medical History: Asthma, Seizure, Other Additional Past Medical Histor: BENIGN BRAIN MASS,HYDROCEPHALUS,SCIATICA,PSEUDO TUMOR,CRANIOSYNOTOSIS (EUGENIO DOUGLAS CORNER BLOCK CUTTER) Past Surgical History: Other Additional Past Surgical Histo: CHIARI MALFORMATIVE -2015, "BACK SURGERY",SKULL X3 (EUGENIO DOUGLAS CORNER BLOCK CUTTER) Smoking Status: Never Smoker Alcohol Use: Occasionally Drug Use: Marijuana (EUGENIO DOUGLAS CORNER BLOCK CUTTER) General Adult EDM: Chief Complaint: HAND PROBLEM HPI: HPI: Patient is a 25 year old female who presents with 2 weeks of a wart on her left middle finger PIP. It is pea-sized and raised. Patient states she started squeezing on the wart and now has become very tender. Patient rates her pain with movement of the finger at a 6 out of 10. Patient has a history of asthma, benign brain mass, hydrocephalus, sciatica, craniosynostosis, seizure. (EUGENIO DOUGLAS CORNER BLOCK CUTTER) Review of Systems: Review of Systems: Constitutional: Denies fever or chills. [] Eyes: Denies change in visual acuity. [] HENT: Denies nasal congestion or sore throat. [] Respiratory: Denies cough or shortness of breath. [] Cardiovascular: Denies chest pain or edema. [] GI: Denies abdominal pain, nausea, vomiting, bloody stools or diarrhea. [] : Denies dysuria. [] Musculoskeletal: Denies back pain or joint pain. + Left middle finger pain [] Integument: Denies rash. +Finger wart [] Neurologic: Denies headache, focal weakness or sensory changes. [] Endocrine: Denies polyuria or polydipsia. [] Lymphatic: Denies swollen glands. [] Psychiatric: Denies depression or anxiety. [] (EUGENIO DOUGLAS CORNER BLOCK CUTTER) Heart Score: C/O Chest Pain: No Risk Factors: Risk Factors: DM, Current or recent (<one month) smoker, HTN, HLP, family history of CAD, obesity. Risk Scores: Score 0 - 3: 2.5% MACE over next 6 weeks - Discharge Home Score 4 - 6: 20.3% MACE over next 6 weeks - Admit for Clinical Observation Score 7 - 10: 72.7% MACE over next 6 weeks - Early Invasive Strategies (EUGENIO DOUGLAS APRN) Allergies: Allergies: Allergies Coded Allergies Type Severity Reaction Last Updated Verified amoxicillin Allergy Intermediate 01/31/19 Yes (EUGENIO DOUGLAS APRN) Physical Exam: PE: Constitutional: Well developed, well nourished, no acute distress, non-toxic appearance. [] HENT: Normocephalic, atraumatic, bilateral external ears normal, oropharynx moist, no oral exudates, nose normal. [] Eyes: PERRLA, EOMI, conjunctiva normal, no discharge. [] Neck: Normal range of motion, no tenderness, supple, no stridor. [] Cardiovascular:Heart rate regular rhythm, no murmur [] Lungs & Thorax: Bilateral breath sounds clear to auscultation [] Abdomen: Bowel sounds normal, soft, no tenderness, no masses, no pulsatile masses. [] Skin: Warm, dry, no erythema, no rash. Wart to left middle finger PIP is pea- sized [] Back: No tenderness, no CVA tenderness. [] Extremities: No tenderness, no cyanosis, no clubbing, ROM intact, no edema. [] Neurologic: Alert and oriented X 3, normal motor function, normal sensory function, no focal deficits noted. [] Psychologic: Affect normal, judgement normal, mood normal. [] (EUGENIO DOUGLAS CORNER BLOCK CUTTER) Current Patient Data: Vital Signs: Vital Signs Date Time Temp Pulse Resp B/P (MAP) Pulse Ox O2 Delivery O2 Flow Rate FiO2 02/17/21 15:30 97.0 89 16 148/87 (107) 98 Room Air 97.0 (EUGENIO DOUGLAS APRN) EKG: EKG: [] (EUGENIO DOUGLAS CORNER BLOCK CUTTER) Radiology/Procedures: Radiology/Procedures: [] (EUGENIO DOUGLAS CORNER BLOCK CUTTER) Course & Med Decision Making: Course & Med Decision Making Pertinent Labs and Imaging studies reviewed. (See chart for details) See HPI. Alert and oriented x4. Ambulatory steady gait. Radial pulse strong present. Cap refill less than 2 seconds. Skin pink warm and dry. Pea-sized nondraining noninfected hard wart to the left middle finger PIP joint. [] (EUGENIO DOUGLAS APRN) Dragon Disclaimer: Dragon Disclaimer: This electronic medical record was generated, in whole or in part, using a voice recognition dictation system. (EUGENIO DOUGLAS APRN) Departure Departure Impression: Primary Impression: Wart Qualified Codes: B07.9 - Viral wart, unspecified Disposition: HOME / SELF CARE / HOMELESS Condition: STABLE Referrals: Ramesh TSAI MD (PCP) Patient Instructions: Warts Additional Instructions: Follow-up with primary care or refueling ramp attendant of your choice. Do not pick or squeeze at the area as it can spread. Use [id number] wart medications. Attending Signature Attending Signature I have participated in the care of this patient and I have reviewed and agree with all pertinent clinical information above including history, exam, and recommendations. (LOUISE GUIDRY DO) EUGENIO DOUGLAS APRN February 17, 2021 16:37 LOUISE GUIDRY DO February 19, 2021 17:45
== END 2021-02-17 16:40 | disposition home or self-care (01) ==
LOC: ER 15:16
DX: B07.9 Viral wart, unspecified (principal); J45.909 Unspecified asthma, uncomplicated; Z88.1 Allergy status to other antibiotic agents
CPT/HCPCS: 99282

== ENCOUNTER 2021-06-12 16:20 | Emergency (ER) | payer MEDICAID ==
[2021-06-13] MEDS ORDERED: IBUP-1007 PO (10:53)
== END 2021-06-12 22:23 | disposition left against medical advice (07) ==
LOC: ER 16:20
DX: S69.90XA Unspecified injury of unspecified wrist, hand and finger(s), initial encounter (principal); Z53.21 Procedure and treatment not carried out due to patient leaving prior to being seen by health care provider; X58.XXXA Exposure to other specified factors, initial encounter; Y93.89 Activity, other specified; Y92.89 Other specified places as the place of occurrence of the external cause; Y99.8 Other external cause status

== ENCOUNTER 2021-06-13 09:41 | Emergency (ER) | payer MEDICAID ==
[~2021-06-13] VITALS: Ht 162.6 cm; Wt 130.0 kg
[2021-06-13 10:05] VITALS: BP 139/78
[2021-06-13] MEDS ORDERED: IBUPROFEN 200 MG TABLET. PO ONE (10:15)
--- NOTE | 2021-06-13 10:24 | PHYS DOC ---
Past Medical History Past Medical History: Asthma, Seizure, Other Additional Past Medical Histor: BENIGN BRAIN MASS,HYDROCEPHALUS,SCIATICA,PSEUDO TUMOR,CRANIOSYNOTOSIS Past Surgical History: No Surgical History, Other Additional Past Surgical Histo: CHIARI MALFORMATIVE -2015, "BACK SURGERY",SKULL X3 Smoking Status: Never Smoker Alcohol Use: Occasionally Drug Use: Marijuana General Adult EDM: Chief Complaint: THUMB HPI: HPI: Patient is a 26 year old female who presents with was pulling apart frozen chicken breast on June 11 and felt a pop in her right thumb. She states that the next morning yesterday when she woke up it was swollen and painful. Patient denies numbness, joint laxity, skin color change, skin image or change. She rates her pain 7 out of 10. She states she took Tylenol at 4 AM this morning. History of benign brain mass, hydrocephalus, sciatica, pseudotumor, seizure, asthma. Review of Systems: Review of Systems: Constitutional: Denies fever or chills. [] Eyes: Denies change in visual acuity. [] HENT: Denies nasal congestion or sore throat. [] Respiratory: Denies cough or shortness of breath. [] Cardiovascular: Denies chest pain or + right thumb swelling edema. [] GI: Denies abdominal pain, nausea, vomiting, bloody stools or diarrhea. [] : Denies dysuria. [] Musculoskeletal: Denies back pain or + right thumb pain joint pain. [] Integument: Denies rash. [] Neurologic: Denies headache, focal weakness or sensory changes. [] Endocrine: Denies polyuria or polydipsia. [] Lymphatic: Denies swollen glands. [] Psychiatric: Denies depression or anxiety. [] Heart Score: C/O Chest Pain: No Risk Factors: Risk Factors: DM, Current or recent (<one month) smoker, HTN, HLP, family history of CAD, obesity. Risk Scores: Score 0 - 3: 2.5% MACE over next 6 weeks - Discharge Home Score 4 - 6: 20.3% MACE over next 6 weeks - Admit for Clinical Observation Score 7 - 10: 72.7% MACE over next 6 weeks - Early Invasive Strategies Current Medications: Current Medications Medications (Trade) Dose Ordered Sig/Dorina Start Time Stop Time Status Last Admin Dose Admin Ibuprofen (Motrin) 600 mg 1X ONCE 06/13/21 10:15 8/25/21 10:16 DC Allergies: Allergies: Allergies Coded Allergies Type Severity Reaction Last Updated Verified amoxicillin Allergy Intermediate 01/31/19 Yes Physical Exam: PE: Constitutional: Well developed, well nourished, no acute distress, non-toxic appearance. [] HENT: Normocephalic, atraumatic, bilateral external ears normal, oropharynx moist, no oral exudates, nose normal. [] Eyes: PERRLA, EOMI, conjunctiva normal, no discharge. [] Neck: Normal range of motion, no tenderness, supple, no stridor. [] Cardiovascular:Heart rate regular rhythm, no murmur [] Lungs & Thorax: Bilateral breath sounds clear to auscultation [] Abdomen: Bowel sounds normal, soft, no tenderness, no masses, no pulsatile masses. [] Skin: Warm, dry, no erythema, no rash. [] Back: No tenderness, no CVA tenderness. [] Extremities: Base of right thumb tenderness, no cyanosis, no clubbing, ROM intact but painful, 2+ edema. [] Neurologic: Alert and oriented X 3, normal motor function, normal sensory function, no focal deficits noted. [] Psychologic: Affect normal, judgement normal, mood normal. [] Current Patient Data: Vital Signs: Vital Signs Date Time Temp Pulse Resp B/P (MAP) Pulse Ox O2 Delivery O2 Flow Rate FiO2 06/13/21 10:05 98.1 108 16 139/78 (107) 100 Room Air 98.1 EKG: EKG: [] Radiology/Procedures: Radiology/Procedures: [] Impression: [facility] [address] [place], [place] [id number] IMAGING REPORT Signed PATIENT: DENIZ LEWIS ACCOUNT: [id number] : 1995 LOCATION: ER AGE: 26 SEX: F EXAM STATUS: PRE ER ORD. PHYSICIAN: EUGENIO DOUGLAS APRN REASON: thumb pain PROCEDURE: HAND RIGHT 3V EXAM: Right hand, 3 views. HISTORY: Thumb pain. COMPARISON: None. FINDINGS: 3 views of the right hand are obtained. There is no fracture, dislocation or subluxation. There is no radiodense foreign body. There is slight lucency at the base of the first distal phalanx which is likely physiologic. Th ere is no convincing trabecular disruption to suggest a nondisplaced fracture. IMPRESSION: No acute osseous finding. Electronically signed by: Fern Bryant MD (06/13/2021 10:45 AM) [id number] DICTATED and SIGNED BY: FERN BRYANT MD DATE: 06/13/21 [id number] 0 Course & Med Decision Making: Course & Med Decision Making Pertinent Labs and Imaging studies reviewed. (See chart for details) See HPI. Alert and oriented x4. Ambulatory steady gait. Speaks in full sentences. Skin pink warm and dry. 2+ swelling. Looks to be slight bruising to the thumb and just below the thumb. Tenderness to the base of the thumb. No joint laxity. Radial pulse strong and present. Cap refill less than 2 seconds. X-ray shows no acute findings. Patient is placed in a AlumaFoam thumb splint. She will be referred to orthopedics. [] Dragon Disclaimer: Dragon Disclaimer: This electronic medical record was generated, in whole or in part, using a voice recognition dictation system. Departure Departure Impression: Primary Impression: Thumb injury Qualified Codes: S69.91XA - Unspecified injury of right wrist, hand and finger(s), initial encounter Disposition: HOME / SELF CARE / HOMELESS Condition: STABLE Referrals: NO PCP (PCP) ROMAINE HOFFMANN DO Patient Instructions: Thumb Sprain Additional Instructions: Follow-up with your orthopedic or your primary care provider as soon as possible. X-rays only show bones but not ligaments. Use ibuprofen and ice for your pain. Scripts Ibuprofen (IBUPROFEN) 600 Mg Tablet 600 MG PO PRN Q6HRS PRN for INFLAMMATION, #25 TAB Prov: EUGENIO DOUGLAS APRN 06/13/21 EUGENIO DOUGLAS APRN Jun 13, 2021 10:24
--- NOTE | 2021-06-13 10:48 | RAD ---
EXAM: Right hand, 3 views. HISTORY: Thumb pain. COMPARISON: None. FINDINGS: 3 views of the right hand are obtained. There is no fracture, dislocation or subluxation. T here is no radiodense foreign body. There is slight lucency at the base of the first distal phalanx w hich is likely physiologic. There is no convincing trabecular disruption to suggest a nondisplaced fr acture. IMPRESSION: No acute osseous finding. Electronically signed by: Fern Carmichael MD (06/13/2021 10:45 AM) [id number]
[2021-06-13] MEDS ORDERED: IBUP-1007 PO (10:53)
== END 2021-06-13 11:13 | disposition home or self-care (01) ==
LOC: ER 09:41
DX: S69.91XA Unspecified injury of right wrist, hand and finger(s), initial encounter (principal); J45.909 Unspecified asthma, uncomplicated; Z88.1 Allergy status to other antibiotic agents; X50.9XXA Other and unspecified overexertion or strenuous movements or postures, initial encounter; Y93.89 Activity, other specified; Y92.89 Other specified places as the place of occurrence of the external cause; Y99.8 Other external cause status
CPT/HCPCS: 73130; 99283